=== PATIENT | female | born 1935 | race Two or more races ===

== ENCOUNTER 2021-12-24 11:40 | Inpatient (IN) | payer OTHER ==
[~2021-12-24] VITALS: Ht 165.1 cm; Wt 101.5 kg
[2021-12-24 16:15] LABS: Basophils # (auto) 0.1 10 ^3/uL (0-0.2); Basophils % (auto) 1.4 % (0.0-2.0); Eosinophils # (auto) 0.1 10 ^3/uL (0-0.8); Eosinophils % (auto) 1.8 % (0.0-7.0); Hematocrit 31.5 % (36.0-46.0); Hemoglobin 10.2 g/dL (12.2-16.2); Lymphocytes # (auto) 1.1 10 ^3/uL (0.4-5.4); Lymphocytes % (auto) 26.9 % (10.0-50.0); Mean Corpuscular Hemoglobin 31.5 pg (28.0-32.0); Mean Corpuscular Hgb Conc. 32.4 g/dL (32.0-36.0); Mean Corpuscular Volume 97.4 fL (80.0-100.0); Monocytes # (auto) 0.5 10 ^3/uL (0-1.3); Monocytes % (auto) 13.5 % (0.0-12.0); Neutrophils # (auto) 2.2 10 ^3/uL (1.6-8.6); Neutrophils % (auto) 56.4 % (37.0-80.0); Red Blood Cells 3.24 10^6/uL (4.0-5.20); Red Cell Distribution Width 16.4 % (11.8-14.3)
[2021-12-24] MEDS ORDERED: FUROSEMIDE 40 MG/4 ML VIAL IV ONE (16:15)
[2021-12-24 16:33] LABS: Albumin 2.8 g/dL (3.4-5.0); Potassium 3.7 mmol/L (3.5-5.1)
[2021-12-24 16:36] LABS: BUN/Creatinine Ratio 17.3; Bilirubin, Total 0.7 mg/dL (0.2-1.0); Total Protein 6.5 g/dL (6.4-8.2)
[2021-12-24 17:29] LABS: Urine Bacteria NONE SEEN /hpf (None Seen); Urine Blood TRACE /uL (Negative); Urine Hyaline Cast FEW /lpf (0 - 2); Urine Specific Gravity 1.008 (1.001-1.035); Urine WBC 1 /hpf (0 - 5)
[2021-12-25] MEDS ORDERED: FUROSEMIDE 40 MG/4 ML VIAL IV ONE
[2021-12-25] MEDS ORDERED: hydrALAZINE HCL 20 MG/ML VL IV ONE
[2021-12-25] MEDS ORDERED: BUME2TAB5 PO (00:35)
[2021-12-25] MEDS ORDERED: ONDANSETRON HCL 4 MG/2 ML VIAL IV PRN (01:15)
[2021-12-25] MEDS ORDERED: FUROSEMIDE INJECTION 100 MG in SODIUM CHL 0.9% 100 ML IV ONE (01:15)
[2021-12-25] MEDS ORDERED: MORPHINE SULFATE INJ 2 MG/ml SYRG IV PRN ×2 (01:15)
[2021-12-25] MEDS ORDERED: NITROGLYCERIN 0.4 MG SL TAB SL PRN (01:15)
[2021-12-25] MEDS ORDERED: DEXTROSE (50%) 50ML SYRG IV PRN (01:15)
[2021-12-25] MEDS ORDERED: hydrALAZINE HCL 20 MG/ML VL IV PRN (01:15)
[2021-12-25 06:32] LABS: Basophils # (auto) 0.1 10 ^3/uL (0-0.2); Basophils % (auto) 1.4 % (0.0-2.0); Eosinophils # (auto) 0.1 10 ^3/uL (0-0.8); Eosinophils % (auto) 1.5 % (0.0-7.0); Hematocrit 33.2 % (36.0-46.0); Hemoglobin 10.9 g/dL (12.2-16.2); Lymphocytes # (auto) 1.1 10 ^3/uL (0.4-5.4); Mean Corpuscular Hemoglobin 31.7 pg (28.0-32.0); Mean Corpuscular Hgb Conc. 32.7 g/dL (32.0-36.0); Mean Corpuscular Volume 96.7 fL (80.0-100.0); Monocytes # (auto) 0.6 10 ^3/uL (0-1.3); Monocytes % (auto) 13.2 % (0.0-12.0); Neutrophils % (auto) 60.9 % (37.0-80.0); Nucleated Red Blood Cells % 0.1 %; Red Blood Cells 3.43 10^6/uL (4.0-5.20); Red Cell Distribution Width 16.1 % (11.8-14.3); White Blood Cell 4.9 10^3/uL (4.4-10.8)
[2021-12-25] MEDS: ACCU-CHEK COMFORT CURVE STRIP VI SCH ×4 (06:57→22:30)
[2021-12-25] MEDS: dilTIAZem 120MG ER CAP PO SCH (07:07)
[2021-12-25] MEDS: InsuLIN REG 1unit/0.01ml Soln (100units/ml) SC SCH ×4 (07:07→22:40)
[2021-12-25 09:42] LABS: BUN/Creatinine Ratio 18.7; Calcium 8.8 mg/dL (8.5-10.1); Magnesium 2.2 mg/dL (1.6-2.6); Potassium 3.3 mmol/L (3.5-5.1)
[2021-12-25] MEDS: CARVEDILOL 3.125 MG TAB PO SCH ×2 (09:46→22:17)
[2021-12-25] MEDS ORDERED: ENOXAPARIN SOD 40 MG/0.4 ML SYRINGE SC SCH (10:00)
[2021-12-25 13:52] LABS: INR 1.27 (0.9-1.15); Partial Thromboplastin Time 31.2 sec (24.6-33.4)
[2021-12-25 15:12] LABS: Protein, Urine 9.3 mg/dL (0.0-11.9)
[2021-12-25] MEDS ORDERED: METO-6 PO (15:56)
[2021-12-25] MEDS ORDERED: FURO1TAB33 PO (15:56)
[2021-12-25] MEDS ORDERED: IPRA0.00 IN (15:56)
[2021-12-25] MEDS ORDERED: HEPARIN SODIUM (PORCINE) 5000 UNITS/ML 1ML VIAL ONE (22:28)
[2021-12-25] MEDS: HEPARIN SODIUM (PORCINE) 5000 UNITS/ML 1ML VIAL SC SCH (23:01)
[2021-12-26] VITALS (9 sets, daily range): BP systolic 132–155; BP diastolic 48–69
[2021-12-26] MEDS: ACCU-CHEK COMFORT CURVE STRIP VI SCH ×4 (06:26→22:00)
[2021-12-26] MEDS: InsuLIN REG 1unit/0.01ml Soln (100units/ml) SC SCH ×4 (06:26→22:31)
[2021-12-26] MEDS: dilTIAZem 120MG ER CAP PO SCH (06:27)
[2021-12-26] MEDS: CARVEDILOL 3.125 MG TAB PO SCH ×2 (10:00→22:30)
[2021-12-26] MEDS: HEPARIN SODIUM (PORCINE) 5000 UNITS/ML 1ML VIAL SC SCH ×2 (10:03→22:30)
[2021-12-26] MEDS: ACETAMINOPHEN 325 MG TAB PO PRN (11:05)
[2021-12-26] MEDS ORDERED: POTASSIUM EFFERVESENT TAB 25 MEQ PO ONE (12:30)
[2021-12-26 14:13] LABS: Basophils # (auto) 0 10 ^3/uL (0-0.2); Basophils % (auto) 0.8 % (0.0-2.0); Eosinophils # (auto) 0.1 10 ^3/uL (0-0.8); Eosinophils % (auto) 1.4 % (0.0-7.0); Hematocrit 32.1 % (36.0-46.0); Hemoglobin 10.3 g/dL (12.2-16.2); Lymphocytes # (auto) 0.9 10 ^3/uL (0.4-5.4); Lymphocytes % (auto) 15.6 % (10.0-50.0); Mean Corpuscular Hemoglobin 31.6 pg (28.0-32.0); Mean Corpuscular Volume 98.7 fL (80.0-100.0); Monocytes # (auto) 0.8 10 ^3/uL (0-1.3); Monocytes % (auto) 14.7 % (0.0-12.0); Neutrophils # (auto) 3.8 10 ^3/uL (1.6-8.6); Neutrophils % (auto) 67.5 % (37.0-80.0); Nucleated Red Blood Cells % 0.1 %; Red Blood Cells 3.25 10^6/uL (4.0-5.20); Red Cell Distribution Width 16.6 % (11.8-14.3); White Blood Cell 5.6 10^3/uL (4.4-10.8)
[2021-12-26 14:48] LABS: Albumin 2.5 g/dL (3.4-5.0); Calcium 8.7 mg/dL (8.5-10.1); Potassium 3.5 mmol/L (3.5-5.1)
[2021-12-26 14:51] LABS: BUN/Creatinine Ratio 20.3; Bilirubin, Total 0.6 mg/dL (0.2-1.0); Total Protein 6.2 g/dL (6.4-8.2)
[2021-12-26 14:52] LABS: BUN/Creatinine Ratio 20.3; Calcium 8.9 mg/dL (8.5-10.1); Magnesium 2.4 mg/dL (1.6-2.6); Potassium 3.5 mmol/L (3.5-5.1)
[2021-12-26] MEDS: NYSTATIN TOPICAL POWDER 15GM TOP SCH (22:00)
[2021-12-27] MEDS: FUROSEMIDE 40 MG/4 ML VIAL IV SCH ×2 (01:21→10:11)
[2021-12-27] MEDS: ACETAMINOPHEN 325 MG TAB PO PRN ×2 (01:35→08:54)
[2021-12-27 05:00] VITALS: BP 129/47
[2021-12-27 05:31] LABS: Basophils # (auto) 0.1 10 ^3/uL (0-0.2); Basophils % (auto) 1.1 % (0.0-2.0); Eosinophils # (auto) 0.1 10 ^3/uL (0-0.8); Eosinophils % (auto) 2.1 % (0.0-7.0); Hematocrit 30.6 % (36.0-46.0); Hemoglobin 9.9 g/dL (12.2-16.2); Mean Corpuscular Hemoglobin 32.3 pg (28.0-32.0); Mean Corpuscular Hgb Conc. 32.4 g/dL (32.0-36.0); Mean Corpuscular Volume 99.8 fL (80.0-100.0); Monocytes # (auto) 0.9 10 ^3/uL (0-1.3); Monocytes % (auto) 17.4 % (0.0-12.0); Neutrophils # (auto) 2.9 10 ^3/uL (1.6-8.6); Neutrophils % (auto) 58.4 % (37.0-80.0); Nucleated Red Blood Cells % 0.1 %; Red Blood Cells 3.07 10^6/uL (4.0-5.20); Red Cell Distribution Width 16.9 % (11.8-14.3)
[2021-12-27 05:55] LABS: Albumin 2.6 g/dL (3.4-5.0); Calcium 8.8 mg/dL (8.5-10.1); Potassium 3.9 mmol/L (3.5-5.1)
[2021-12-27 05:58] LABS: BUN/Creatinine Ratio 23.2; Bilirubin, Total 0.7 mg/dL (0.2-1.0); Total Protein 6.1 g/dL (6.4-8.2)
[2021-12-27] MEDS: InsuLIN REG 1unit/0.01ml Soln (100units/ml) SC SCH ×2 (06:43→11:38)
[2021-12-27] MEDS: ACCU-CHEK COMFORT CURVE STRIP VI SCH ×2 (06:46→11:34)
[2021-12-27] MEDS: dilTIAZem 120MG ER CAP PO SCH (06:46)
[2021-12-27 08:05] VITALS: BP 135/50
[2021-12-27] MEDS ORDERED: HYDROcodone-ACET 5/325MG TAB PO PRN (08:45)
[2021-12-27 09:00] VITALS: BP 135/50
[2021-12-27] MEDS: NYSTATIN TOPICAL POWDER 15GM TOP SCH (10:12)
[2021-12-27] MEDS: CARVEDILOL 3.125 MG TAB PO SCH (10:12)
[2021-12-27] MEDS: HEPARIN SODIUM (PORCINE) 5000 UNITS/ML 1ML VIAL SC SCH (10:17)
[2021-12-27 12:46] VITALS: BP 132/52
[2021-12-27 13:21] LABS: Hepatitis C Antibody Negative (Negative)
[2021-12-27 15:02] VITALS: BP 120/51
== END 2021-12-27 17:09 | disposition home health service (06) | DRG 280 ==
LOC: EDBD 11:40 → ER 11:52 → EDSEX 11:52 → TELE 12-25 01:04 → TELE-CENTR 12-25 23:47 → OBSVTOIN 12-27 10:53
PROVIDERS: ADMIT Hospitalist; ATTEND Hospitalist
DX: I13.0 Hypertensive heart and chronic kidney disease with heart failure and stage 1 through stage 4 chronic kidney disease, or unspecified chronic kidney disease (principal); I21.4 Non-ST elevation (NSTEMI) myocardial infarction; I50.43 Acute on chronic combined systolic (congestive) and diastolic (congestive) heart failure; N17.0 Acute kidney failure with tubular necrosis; D63.1 Anemia in chronic kidney disease; E11.22 Type 2 diabetes mellitus with diabetic chronic kidney disease; E66.9 Obesity, unspecified; E78.5 Hyperlipidemia, unspecified; I08.1 Rheumatic disorders of both mitral and tricuspid valves; Z20.822 Contact with and (suspected) exposure to COVID-19; I27.20 Pulmonary hypertension, unspecified; I87.8 Other specified disorders of veins; N18.30 Chronic kidney disease, stage 3 unspecified; Z90.710 Acquired absence of both cervix and uterus; Z68.37 Body mass index [BMI] 37.0-37.9, adult
CPT/HCPCS: 36415; 71045; 76775; 76856; 80048; 80053; 81001; 82306; 82570; 82962; 83735; 83880; 83970; 84156; 84300; 84484; 85025; 85610; 85730; 86803; 87340; 93005; 96365; 96375; 96376; 97110; 97163; 97530; G0378; J1815

== ENCOUNTER 2024-12-03 12:00 | Inpatient (IN) | payer OTHER, MEDICAID ==
[~2024-12-03] VITALS: Ht 165.1 cm; Wt 65.5 kg
[~2024-12-03 12:00] MED LIST: BUME2TAB5 PO; FURO1TAB33 PO; IPRA0.00 IN; METO-6 PO
--- NOTE | 2024-12-03 12:18 | ED.PDOC ---
HPI Comments HPI: 89 year old presents to the emergency department via EMS with a chief complaint of generalized weakness onset today (12/03/24). PMHx CHF, a-fib, HTN, DM, CKF. Per EMS, patient was experiencing generalized weakness, is able to ambulate with walker. Upon EMS arrival, patient had a fever of 100.2 F, positive orthostatic hypotension, 89 systolic, O2 sat 98% RA. Patient states last meal was yesterday morning. She is currently on Eliquis. Patient denies any pain at this time. No other symptoms or modifying factors present at this time. Initial Vitals BP: 109/61 HR: 92 RR: 18 O2 Sat: 98% Temp: 98.2 F Past Medical history: HTN, a-fib, CHF, CKF, DM Past Surgical history: denies Medications: Eliquis Social History: Denies smoking, ETOH, and drug use. Allergies: NKDA HPI: Poor Historian. REVIEW OF SYSTEMS: CONSTITUTIONAL: Denies acute: fever, diaphoresis, chills, HEAD: Denies acute: headache, photophobia Eyes: Denies acute: Double vision, vision loss, eye pain, eye discharge. EARS: Denies acute: tinnitus, hearing loss, ear discharge, ear pain, THROAT: Denies acute: sore throat, swelling, difficulty swallowing , pain with swallowing, change in voice. NECK: Denies acute: neck pain, neck swelling, stiff neck. HEART: Denies acute : chest pain, palpitations, LUNGS: Denies acute: SOB, wheezing, cough, hemoptysis ABDOMEN: Denies acute: abdominal pain, Nausea, Vomiting, diarrhea, melena , hematemesis, hematochezia SKIN: Denies acute: rash, redness, lesions, itchiness. EXTREMITIES: Denies acute: calf pain, numbness, tingling, weakness, denies pain in extremity. Denies acute: Low back pain. Neuro: Denies acute: focal neurological deficit, motor or sensory focal neurological deficit, tremors, seizure like activity, confusion, change in mental status, loss of bowel or bladder function, cauda equina like symptoms. : Denies acute: dysuria, hematuria, flank pain, increase in urinary frequency. PSYCH: Denies acute: hallucination, suicidal ideation, homicidal ideation. FEMALE: Denies acute: abnormal vaginal bleeding, foul odor, unusual discharge. PHYSICAL EXAM: General: ----mild----acute distress, awake and alert. Head: normocephalic, atraumatic. Neck: supple, trachea is midline, no swelling. Throat: Normal phonation. Eyes:, no erythema, no purulent discharge, no proptosis, no icterus. Heart: regular rate, regular rhythm, no significant murmur appreciated. Lungs: no apparent respiratory distress, Able to speak in full sentences. No wheezing, no rhonchi, no crackles. No stridors Clear to auscultation bilaterally. Abdomen: non tender to palpation, non distended, soft, no guarding, no rebound, + bowel sounds. Neuro: Awake, Alert, oriented to name, self, situation, follows commands GCS=15. Speech is normal. Skin: no petechia, no purpura, no cyanosis, non-pale, not jaundice. Lower extremities: --2/4 b/l - Pitting edema no deformity, no calf TTP. Right lateral [id number] swelling that is tender to palpation. Patient has said that she fell three days ago without any head injury. It appears like possibly a hematoma. Bilateral venous stasis Makes eye contact. moves all four extremities. Face: no apparent facial droop. ED COURSE: DISCLAIMER: This medical document was created using an electronic medical record system with voice recognition software and computerized dictation system. Although this document has been carefully reviewed, there might still be some phonetic and typographical errors. Occasional wrong-word or "sound-alike" substitutions may have occurred due to the inherent limitations of voice recognition software. These areas are purely typographical due to imperfections of the software [employer] and do not reflect any compromise in the patient's medical care. Please read the chart carefully and recognize, using context, where these substitutions have occurred. Chief Complaint: General Weakness Time Seen by MD: 12:00 Primary Care Provider: PRISCILA Reviewed Notes: Medications, Allergies Allergies: Coded Allergies: NO KNOWN ALLERGIES (Unverified , 12/24/21) Home Meds Active Scripts Metoprolol Succinate (Toprol Xl) 50 Mg Tab, 1 TAB PO DAILY, #30 TAB 5 Refills Prov:GULSHAN ZIMMERMAN MD 12/25/21 Ipratropium-Albuterol (Ipratropium [place]/Albut) 1 Celine Celine, 1 CELINE IN Q4HP PRN, #100 ML Prov:GULSHAN ZIMMERMAN MD 12/25/21 Furosemide (Lasix) 20 Mg Tb, 2 TAB PO BID, #90 TAB 1 Refill Prov:GULSHAN ZIMMERMAN MD 12/25/21 Bumetanide (Bumetanide) 2 Mg Tab, 0.5 TAB PO DAILY, #30 TAB 0 Refills Prov:CASSIUS RODRIGUEZ MD 12/25/21 Information Source: Patient, Emergency Med Personnel Mode of Arrival: EMS Severity: Moderate Timing: Hours Duration: Since onset Prehospital treatment: None Onset: At Rest Cardiac Risk Factors: HTN, Diabetes PE Risk Factors: None History of: None Modifying Factors: Nothing Past Medical History PAST MEDICAL HISTORY: AFIB, CHF, CKF, DM, HTN Surgical History: Denies all surgeries [place] SHERIFF History: No Pertinent [place]IFF History Family History Family History: Reviewed,noncontributory to illness Social History Smoker: Non-Smoker Alcohol: Denies ETOH Use Drugs: Denies Drug Use Lives In: Home Was a procedure done? Was a procedure done?: No X-Ray, Labs, Meds, VS Vital Signs Date Time Temp Pulse Resp B/P (MAP) Pulse Ox O2 Delivery O2 Flow Rate FiO2 12/03/24 14:45 80 18 97 Room Air* 0 21 12/03/24 14:45 98.3 80 18 98/66 (77) 97 98.3 12/03/24 12:06 98.2 92 18 109/61 (77) 98 98.2 12/03/24 12:06 92 18 98 Room Air 0 12/03/24 12:06 98.2 92 18 109/61 (77) 98 98.2 12/03/24 12:02 102 Lab Test 12/03/24 19:23 12/03/24 14:49 12/03/24 12:07 Range/Units Troponin I High Sensitivity 62 *H 55 *H </=34 ng/L White Blood Count 7.1 4.4-10.8 10^3/uL Red Blood Count 4.10 4.0-5.20 10^6/uL Hemoglobin 13.6 12.2-16.2 g/dL Hematocrit 40.9 36.0-46.0 % Mean Corpuscular Volume 99.9 80.0-100.0 fL Mean Corpuscular Hemoglobin 33.2 H 28.0-32.0 pg Mean Corpuscular Hemoglobin Concent 33.2 32.0-36.0 g/dL Red Cell Distribution Width 14.4 H 11.8-14.3 % Platelet Count 206 140-450 10^3/uL Mean Platelet Volume 6.8 L 6.9-10.8 fL Neutrophils (%) (Auto) 72.3 37.0-80.0 % Lymphocytes (%) (Auto) 13.4 10.0-50.0 % Monocytes (%) (Auto) 13.4 H 0.0-12.0 % Eosinophils (%) (Auto) 0.6 0.0-7.0 % Basophils (%) (Auto) 0.3 0.0-2.0 % Neutrophils # (Auto) 5.1 1.6-8.6 10 ^3/uL Lymphocytes # (Auto) 1.0 0.4-5.4 10 ^3/uL Monocytes # (Auto) 1.0 0-1.3 10 ^3/uL Eosinophils # (Auto) 0 0-0.8 10 ^3/uL Basophils # (Auto) 0 0-0.2 10 ^3/uL Nucleated Red Blood Cells 0.1 % Sodium Level 128 L 136-145 mmol/L Potassium Level 4.5 3.5-5.1 mmol/L Chloride Level 90 L 98-107 mmol/L Carbon Dioxide Level 26 20-31 mmol/L Anion Gap 12 5-15 Blood Urea Nitrogen 103 *H 9-23 mg/dL Creatinine 2.83 H 0.550-1.02 mg/dL Glomerular Filtration Rate Calc 16 >90 mL/min BUN/Creatinine Ratio 36.4 H 10.0-20.0 Serum Glucose 150 H 74-106 mg/dL Lactic Acid Level 1.1 0.4-2.0 mmol/L Calcium Level 9.9 8.7-10.4 mg/dL Total Bilirubin 1.0 0.2-1.0 mg/dL Aspartate Amino Transferase (AST) 21 13-40 U/L Alanine Aminotransferase (ALT) < 9 7-40 U/L Alkaline Phosphatase 83 46-116 U/L B-Type Natriuretic Peptide 404.68 0-100 pg/mL Total Protein 7.6 5.7-8.2 g/dL Albumin 4.2 3.2-4.8 g/dL POC Glucose 130 H 70-106 mg/dl [address] [address] Ph: [phone] DIAGNOSTIC IMAGING Diagnostic Imaging Report : [id number] Signed PATIENT: CHIVO ESPINOSA ACCT: [id number] UNIT: [id number] : 1935 LOC: ER ROOM / BED: / AGE / SEX: 89 / F ADM STATUS: REG ER SERVICE 1219 ORDERING PHYSICIAN: HEATHER DOUGLAS DO PROCEDURE(s): CXRP - CHEST PORTABLE REASON: weak ORDER NUMBER(s): [id number], ACCESSION NUMBER(s): [id number] EXAM: XY CHEST PORTABLE Indication: weak Technique: Single frontal view of the chest was obtained Comparison: CHEST PORTABLE on DOS: 12/24/21, CXRP on DOS: 12/24/21 FINDINGS: Lines and Tubes: None Lungs: No focal consolidation. Linear atelectasis of the left lung base. Pleura: No effusion. No pneumothorax. Cardiomediastinal contours: Cardiomegaly Atherosclerotic vascular calcifications of the thoracic aorta are noted. Bones: No acute osseous abnormality. IMPRESSION: Cardiomegaly. No acute cardiopulmonary disease. ATED BY: MICHELLE DUVALL MD DICTATED DATE/TIME: 12/03/24 124 SIGNED BY: MICHELLE DUVALL MD SIGNED DATE/TIME: 12/03/24 124 CC: [address] [address] Ph: [phone] DIAGNOSTIC IMAGING Diagnostic Imaging Report : [id number] Signed PATIENT: CHIVO ESPINOSA ACCT: [id number] UNIT: [id number] : 1935 LOC: ER ROOM / BED: / AGE / SEX: 89 / F ADM STATUS: REG ER SERVICE 1532 ORDERING PHYSICIAN: HEATHER DOUGLAS DO PROCEDURE(s): RKNCT - CT R KNEE WO CONTRAST REASON: FALL ORDER NUMBER(s): [id number], ACCESSION NUMBER(s): [id number] INDICATION: FALL, trauma, pain COMPARISON: None TECHNIQUE: CT of the right knee was performed without contrast. Volume transverse images were obtained and reconstructed in multiple planes using bone and soft tissue algorithms. Radiation Dose Information: CT Dose: CTDI volume is 7.75 mGy. Dose-length product is 244.94 mGy*cm FINDINGS: Diffuse osteopenia. The alignment is normal. Severe tricompartmental degenerative changes. This is most advanced medially and at the patellofemoral joint. There is no fracture, dislocation or aggressive osseous lesion. There is no joint effusion. Soft-tissue hematoma is present in the subcutaneous soft-tissue overlying the proximal, anterolateral calf. This measures approximately 5.8 x 8.2 cm. IMPRESSION: Soft-tissue hematoma is present in the subcutaneous soft-tissue overlying the proximal, anterolateral calf. This measures approximately 5.8 x 8.2 cm. ATED BY: COSTA PAREDES MD DICTATED DATE/TIME: 12/03/241635 SIGNED BY: COSTA PAREDES MD SIGNED DATE/TIME: 12/03/241635 CC: Time of 1ST Reevaluation: 12:30 Reevaluation 1ST: Unchanged Time of 2ND Reevaluation: 14:43 (As of now all labs are still pending) Time of 3RD Reevaluation: 22:32 (The case was discussed with the admitting team (HPI, physical exam, labs and diagnostic tests that were available at the time of disposition, ED course, treatment plan) on the phone. They agreed to admit the patient to their service and assume care of this patient from this point forward. --- Jamal) Reevaluation 3RD: Improved Patient Education/Counseling: Diagnosis, Treatment Family Education/Counseling: No Family Present Departure 1 Departure Time of Disposition: 16:07 Impression: Primary Impression: Orthostatic hypotension Additional Impressions: Hyponatremia Acute renal failure Elevated troponin Leg hematoma Disposition: ADMITTED INPATIENT Admit to: Tele Condition: Guarded Discharged With: Self Critical Care Note Critical Care Time?: No I personally scribed for HEATHER DOUGLAS DO ([email or web address]) on 12/03/24 at 12:18. Electronically submitted by Yris Mcconnell ([email or web address]). I personally scribed for HEATHER DOUGLAS DO ([email or web address]) on 12/03/24 at 12:58. Electronically submitted by Yris Mcconnell ([email or web address]). I personally scribed for HEATHER DOUGLAS DO ([email or web address]) on 12/03/24 at 16:55. Electronically submitted by Yris Mcconnell ([email or web address]). HEATHER DOUGLAS DO Dec 03, 2024 12:18
--- NOTE | 2024-12-03 12:44 | DVH ---
EXAM: XY CHEST PORTABLE Indication: weak Technique: Single frontal view of the chest was obtained Comparison: CHEST PORTABLE on DOS: 12/24/21, CXRP on DOS: 12/24/21 FINDINGS: Lines and Tubes: None Lungs: No focal consolidation. Linear atelectasis of the left lung base. Pleura: No effusion. No pneumothorax. Cardiomediastinal contours: Cardiomegaly Atherosclerotic vascular calcifications of the thoracic aort a are noted. Bones: No acute osseous abnormality. IMPRESSION: Cardiomegaly. No acute cardiopulmonary disease.
[2024-12-03 14:45] VITALS: PULSE 80; RESP 18; O2SAT 97
[2024-12-03 15:02] LABS: Hematocrit 40.9 % (36.0-46.0); Hemoglobin 13.6 g/dL (12.2-16.2); Mean Corpuscular Hemoglobin 33.2 pg (28.0-32.0); Mean Corpuscular Volume 99.9 fL (80.0-100.0); Nucleated Red Blood Cells % 0.1 %
[2024-12-03 15:19] LABS: Albumin 4.2 g/dL (3.2-4.8); Alkaline Phosphatase 83 U/L (46-116); Anion Gap 12 (5-15); BUN/Creatinine Ratio 36.4 (10.0-20.0); Bilirubin, Total 1.0 mg/dL (0.2-1.0); Calcium 9.9 mg/dL (8.7-10.4); Carbon Dioxide 26 mmol/L (20-31); Potassium 4.5 mmol/L (3.5-5.1); Total Protein 7.6 g/dL (5.7-8.2)
[2024-12-03 15:27] LABS: Alanine Aminotransferase < 9 U/L (7-40); Chloride 90 mmol/L (98-107); Glucose 150 mg/dL (74-106); Sodium 128 mmol/L (136-145)
[2024-12-03 15:31] LABS: Blood Urea Nitrogen 103 mg/dL (9-23)
--- NOTE | 2024-12-03 16:38 | DVH ---
INDICATION: FALL, trauma, pain COMPARISON: None TECHNIQUE: CT of the right knee was performed without contrast. Volume transverse images were obtaine d and reconstructed in multiple planes using bone and soft tissue algorithms. Radiation Dose Information: CT Dose: CTDI volume is 7.75 mGy. Dose-length product is 244.94 mGy*cm FINDINGS: Diffuse osteopenia. The alignment is normal. Severe tricompartmental degenerative changes. This is most advanced medially and at the patellofemora l joint. There is no fracture, dislocation or aggressive osseous lesion. There is no joint effusion. Soft-tissue hematoma is present in the subcutaneous soft-tissue overlying the proximal, anterolateral calf. This measures approximately 5.8 x 8.2 cm. IMPRESSION: Soft-tissue hematoma is present in the subcutaneous soft-tissue overlying the proximal, anterolateral calf. This measures approximately 5.8 x 8.2 cm.
--- NOTE | 2024-12-03 21:14 | ECG ---
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
[2024-12-03] MEDS ORDERED: NITROGLYCERIN 0.4 MG SL TAB SL PRN (23:00)
[2024-12-03] MEDS ORDERED: DEXTROSE (50%) 50ML SYRG IV PRN (23:00)
[2024-12-03] MEDS ORDERED: MORPHINE SULFATE INJ 2 MG/ml SYRG IV PRN (23:00)
--- NOTE | 2024-12-04 00:16 | DVHINCON2 ---
Date of service: Dec 03, 2024 Referring Physician Jamal Reason for Consultation Elevated troponin History of Present Illness This is a 89 year old female with a PMH of HTN, a-fib, CHF, CKF, DM who was brought in by EMS with complaints of generalized weakness onset today (12/03/24). Patient normally is able to ambulate with walker. Upon EMS arrival, patient had a fever of 100.2 F, positive orthostatic hypotension, 89 systolic. Patient states last meal was yesterday morning. She is currently on Eliquis. EKG shows tachycardia at 102. Chest x-ray shows cardiomegaly. CT right knee shows soft-tissue hematoma is present in the subcutaneous soft-tissue overlying the proximal, anterolateral calf. This measures approximately 5.8 x 8.2 cm. 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 Patient was admitted to the hospital. I am asked to consult on this patient. Allergies: Coded Allergies: NO KNOWN ALLERGIES (Unverified , 12/24/21) Home Meds Active Scripts Metoprolol Succinate (Toprol Xl) 50 Mg Tab, 1 TAB PO DAILY, #30 TAB 5 Refills Prov:GULSHAN ZIMMERMAN MD 12/25/21 Ipratropium-Albuterol (Ipratropium [place]/Albut) 1 Celine Celine, 1 CELINE IN Q4HP PRN, #100 ML Prov:GULSHAN ZIMMERMAN MD 12/25/21 Furosemide (Lasix) 20 Mg Tb, 2 TAB PO BID, #90 TAB 1 Refill Prov:GULSHAN ZIMMERMAN MD 12/25/21 Bumetanide (Bumetanide) 2 Mg Tab, 0.5 TAB PO DAILY, #30 TAB 0 Refills Prov:CASSIUS RODRIGUEZ MD 12/25/21 Current Medications Current Medications Medications (Trade) Dose Ordered Sig/Betty Route PRN Reason Start Time Stop Time Status Last Admin Nitroglycerin (Ntrostat Sublingual) 0.4 mg Q5MINP PRN SL FOR CHEST PAIN 12/03/24 23:00 Morphine Sulfate 2 mg Q30M PRN IV FOR CHEST PAIN 12/03/24 23:00 Diagnostic Test (Pha) (Accu-Chek Comfort Curve T) 1 strip ACHS 12/04/24 07:00 Insulin Human Regular (InsuLIN R) ACHS SC 12/04/24 07:00 Dextrose 50 ml UD PRN IV Blood Sugar LESS THAN 60 12/03/24 23:00 Review of Systems CONSTITUTIONAL: Denies acute: fever, diaphoresis, chills, HEAD: Denies acute: headache, photophobia Eyes: Denies acute: Double vision, vision loss, eye pain, eye discharge. EARS: Denies acute: tinnitus, hearing loss, ear discharge, ear pain, THROAT: Denies acute: sore throat, swelling, difficulty swallowing , pain with swallowing, change in voice. NECK: Denies acute: neck pain, neck swelling, stiff neck. HEART: Denies acute : chest pain, palpitations, LUNGS: Denies acute: SOB, wheezing, cough, hemoptysis ABDOMEN: Denies acute: abdominal pain, Nausea, Vomiting, diarrhea, melena , hematemesis, hematochezia SKIN: Denies acute: rash, redness, lesions, itchiness. EXTREMITIES: Denies acute: calf pain, numbness, tingling, weakness, denies pain in extremity. Denies acute: Low back pain. Neuro: Denies acute: focal neurological deficit, motor or sensory focal neurological deficit, tremors, seizure like activity, confusion, change in mental status, loss of bowel or bladder function, cauda equina like symptoms. : Denies acute: dysuria, hematuria, flank pain, increase in urinary frequency. PSYCH: Denies acute: hallucination, suicidal ideation, homicidal ideation. FEMALE: Denies acute: abnormal vaginal bleeding, foul odor, unusual discharge. Vital Signs Vital Signs Date Time Temp Pulse Resp B/P (MAP) Pulse Ox O2 Delivery O2 Flow Rate FiO2 12/03/24 14:45 80 18 97 Room Air* 0 21 12/03/24 14:45 98.3 98/66 (77) 98.3 Physical Exam GENERAL: Alert and oriented x 3. No acute distress. EYES: PERRL, EOMI. Anicteric. HENT: Moist mucous membranes. LUNGS: Clear to auscultation bilaterally. CARDIOVASCULAR: Regular rate and rhythm. ABDOMEN: Soft, non-tender and non-distended. EXTREMITIES: BLE edema. Bilateral venous stasis. Small hematoma. NEUROLOGIC: No focal neurological deficits. SKIN: Warm, dry. Labs/Diagnostic Data Labs Test 12/03/24 19:23 12/03/24 14:49 12/03/24 12:07 Range/Units Troponin I High Sensitivity 62 *H </=34 ng/L White Blood Count 7.1 4.4-10.8 10^3/uL Red Blood Count 4.10 4.0-5.20 10^6/uL Hemoglobin 13.6 12.2-16.2 g/dL Hematocrit 40.9 36.0-46.0 % Mean Corpuscular Volume 99.9 80.0-100.0 fL Mean Corpuscular Hemoglobin 33.2 H 28.0-32.0 pg Mean Corpuscular Hemoglobin Concent 33.2 32.0-36.0 g/dL Red Cell Distribution Width 14.4 H 11.8-14.3 % Platelet Count 206 140-450 10^3/uL Mean Platelet Volume 6.8 L 6.9-10.8 fL Neutrophils (%) (Auto) 72.3 37.0-80.0 % Lymphocytes (%) (Auto) 13.4 10.0-50.0 % Monocytes (%) (Auto) 13.4 H 0.0-12.0 % Eosinophils (%) (Auto) 0.6 0.0-7.0 % Basophils (%) (Auto) 0.3 0.0-2.0 % Neutrophils # (Auto) 5.1 1.6-8.6 10 ^3/uL Lymphocytes # (Auto) 1.0 0.4-5.4 10 ^3/uL Monocytes # (Auto) 1.0 0-1.3 10 ^3/uL Eosinophils # (Auto) 0 0-0.8 10 ^3/uL Basophils # (Auto) 0 0-0.2 10 ^3/uL Nucleated Red Blood Cells 0.1 % Sodium Level 128 L 136-145 mmol/L Potassium Level 4.5 3.5-5.1 mmol/L Chloride Level 90 L 98-107 mmol/L Carbon Dioxide Level 26 20-31 mmol/L Anion Gap 12 5-15 Blood Urea Nitrogen 103 *H 9-23 mg/dL Creatinine 2.83 H 0.550-1.02 mg/dL Glomerular Filtration Rate Calc 16 >90 mL/min BUN/Creatinine Ratio 36.4 H 10.0-20.0 Serum Glucose 150 H 74-106 mg/dL Lactic Acid Level 1.1 0.4-2.0 mmol/L Calcium Level 9.9 8.7-10.4 mg/dL Total Bilirubin 1.0 0.2-1.0 mg/dL Aspartate Amino Transferase (AST) 21 13-40 U/L Alanine Aminotransferase (ALT) < 9 7-40 U/L Alkaline Phosphatase 83 46-116 U/L B-Type Natriuretic Peptide 404.68 0-100 pg/mL Total Protein 7.6 5.7-8.2 g/dL Albumin 4.2 3.2-4.8 g/dL POC Glucose 130 H 70-106 mg/dl Assessment Orthostatic hypotension. TERRI. Weakness. Hyponatremia. Elevated troponin. Leg hematoma. Plan/Recommendation I agree with your ongoing assessment and care of plan. Telemetry reviewed. Echocardiogram. Trend troponin. Morphine for pain management. Nitro SL. Additional plan as per the hospital course. A total of 45 minutes was spent reviewing the patient record, examining the patient, making a diagnostic and therapeutic plan, discussing this plan with medical personnel, following up on diagnostic studies and following the patient for clinical stability excluding any and all procedures. At least 50% of this time was spent in direct, [id number] contact. Plan discussed with: Patient SAHARA RAHMAN MD Dec 04, 2024 00:16
[2024-12-04 00:34] LABS: INR 1.31 (0.9-1.15); Prothrombin Time 13.5 sec (9.3-11.8)
[2024-12-04] MEDS: SODIUM CHLORIDE 0.9% 1,000 ML IV ONE (04:46)
[2024-12-04] MEDS: cefTRIAXone 1GM/50ML D5W 50 ML IV ONE (04:56)
[2024-12-04 05:08] VITALS: BP 107/63; PULSE 88; RESP 16; TEMP 97.4; O2SAT 98
[2024-12-04 05:35] VITALS: BP 114/73; PULSE 91; RESP 14; TEMP 97.9; O2SAT 99
[2024-12-04 05:42] LABS: COVID19 ANTIGEN SOFIA FIA NEGATIVE (NEGATIVE)
[2024-12-04] MEDS: InsuLIN REG 1unit/0.01ml Soln (100units/ml) SC SCH (07:35)
[2024-12-04] MEDS: ACCU-CHEK COMFORT CURVE STRIP VI SCH (07:36)
[2024-12-04 08:13] VITALS: PULSE 84; RESP 16; O2SAT 96
[2024-12-04 09:05] LABS: Urine Protein, UAD Negative (Negative)
[2024-12-04 09:55] LABS: Hematocrit 39.3 % (36.0-46.0); Hemoglobin 13.4 g/dL (12.2-16.2); Mean Corpuscular Hemoglobin 33.1 pg (28.0-32.0); Mean Corpuscular Volume 97.1 fL (80.0-100.0)
[2024-12-04 10:02] LABS: Albumin 3.9 g/dL (3.2-4.8); Alkaline Phosphatase 75 U/L (46-116); Anion Gap 14 (5-15); BUN/Creatinine Ratio 40.7 (10.0-20.0); Bilirubin, Total 0.8 mg/dL (0.2-1.0); Calcium 9.9 mg/dL (8.7-10.4); Carbon Dioxide 25 mmol/L (20-31); Potassium 4.1 mmol/L (3.5-5.1); Total Protein 7.2 g/dL (5.7-8.2)
[2024-12-04 10:06] LABS: Alanine Aminotransferase < 9 U/L (7-40); Chloride 96 mmol/L (98-107); Glucose 124 mg/dL (74-106); Sodium 135 mmol/L (136-145)
[2024-12-04 10:09] LABS: Blood Urea Nitrogen 99 mg/dL (9-23)
[2024-12-04 10:29] LABS: Total Cells Counted 100.0 (100)
--- NOTE | 2024-12-04 11:32 | DVH ---
EXAM DESCRIPTION: RENAL ULTRASOUND CLINICAL HISTORY: TERRI COMPARISON: KIDNEY on DOS: 12/25/21 TECHNIQUE: Multiplanar ultrasound examination of the kidneys and urinary bladder was performed. FINDINGS: The right kidney measures 11.6 cm. No renal calculus. No hydronephrosis.. No solid renal masses. Mult iple right renal cysts measuring up to 3.1 cm. The left kidney measures 9 cm. No renal calculus. No hydronephrosis.. No solid renal masses. Multiple left renal cyst measuring up to 3.6 cm. Renal cortices are echogenic bilaterally. Decompressed urinary bladder. IMPRESSION: 1. Echogenicity kidneys, suggesting medical renal disease. No hydronephrosis. 2. Multiple bilateral renal cysts measuring up to 3.6 cm.
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
[2024-12-04] MEDS: SODIUM CHLORIDE 0.9% 1,000 ML IV SCH (14:16)
--- NOTE | 2024-12-04 15:00 | DVHSR ---
APPROVED REPORT EXAM: Two-dimensional and M-mode echocardiogram with Doppler and color Doppler. Blood Pressure: 101/44 mmHg INDICATION Elevated Trop RISK FACTORS Height: 5' 5", Weight: 140 DIMENSIONS LVDd4.3 (3.8-5.7cm)LA (2D)4.9 (1.9-4.0cm)Aortic Root3.4 (2.0-3.7cm) LVDs3.4 (2.5-4.0cm)LA (MM) (1.9-4.0cm)Aortic Cusp Exc1.7 (1.5-2.0cm) EF (%) 40.0 (55-70%)Rt. Atrium4.7 (1.9-4.0cm)Asc. Aorta cm IVSd1.6 (0.7-1.1cm)RV (D) (1.8-2.4cm) PWd1.2 (0.7-1.1cm) Mitral Valve MitralMitral Stenosis E wave0.80m/sMV Mean GR.mmHg A wave0.40m/sMV Peak GR.mmHg E/A ratio2.02D MVAcm2 Aortic Valve Aortic ValveAortic Stenosis V10.60m/Héctor Mean GR.3mmHg V21.00m/Héctor Peak GR.5mmHg LVOT Diameter2.0 (1.8-2.4cm)Doppler AVA1.88cm2 Pulmonic Valve V20.80m/s Tricuspid Valve TR Velocity2.40m/s [id number] Conclusion SEVERE LVH SEVERE LV DIASTOLIC DYSFUNCTION MILD LV GLOBAL HYPOKINESIS LV EF IS 40% AND IS REDUCED MODERATE DEGREE SYSTOLIC DYSFUNCTION MODERATELY DILATED LA AND RA CALCIFIED MITRAL LEAFLETS MODERATE MR AND TR NORMAL TV,PV AND AORTIC LEAFLETS NORMAL RVSP AND IS 30 MM OF HG NO EFFUSION
[2024-12-04 15:45] VITALS: BP 114/73; PULSE 91; RESP 19; TEMP 98.3; O2SAT 99
[2024-12-04] MEDS: ACETAMINOPHEN 325 MG TAB PO PRN (17:22)
[2024-12-04 20:00] VITALS: PULSE 90
[2024-12-04 21:00] VITALS: BP 106/52; PULSE 89; RESP 16; TEMP 97.2; O2SAT 96
--- NOTE | 2024-12-04 23:35 | DVHPN2 ---
Progress Note - Dictate Date Seen: Dec 04, 2024 Medical Necessity Reason Pt with a Central, PICC or Fol: No Subjective Patient was seen and evaluated in follow up. Patient is complaining of generalized weakness. 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 Renal US shows echogenicity kidneys, suggesting medical renal disease. No hydronephrosis. Multiple bilateral renal cysts measuring up to 3.6 cm. Telemetry reviewed. vital signs Vital Sign Date Time Temp Pulse Resp B/P (MAP) Pulse Ox O2 Delivery O2 Flow Rate FiO2 12/04/24 10:00 97 12 103/54 (70) 97 12/04/24 08:13 Room Air* 0 21 12/04/24 08:01 97.9 97.9 medications Current Medications Medications Dose Ordered Sig/Betty Route Start Time Stop Time Status Last Admin Dose Admin Nitroglycerin 0.4 mg Q5MINP PRN SL 12/03/24 23:00 Morphine Sulfate 2 mg Q30M PRN IV 12/03/24 23:00 Diagnostic Test (Pha) 1 strip ACHS 12/04/24 07:00 12/04/24 11:44 1 STRIP Insulin Human Regular ACHS SC 12/04/24 07:00 12/04/24 11:44 2 UNITS Dextrose 50 ml UD PRN IV 12/03/24 23:00 Sodium Chloride 1,000 ml @ 60 mls/hr [id number] IV 12/04/24 12:30 UNV objective GENERAL: Alert and oriented x 3. No acute distress. EYES: PERRL, EOMI. Anicteric. HENT: Moist mucous membranes. LUNGS: Clear to auscultation bilaterally. CARDIOVASCULAR: Regular rate and rhythm. ABDOMEN: Soft, non-tender and non-distended. EXTREMITIES: BLE edema. Bilateral venous stasis. Small hematoma. NEUROLOGIC: No focal neurological deficits. SKIN: Warm, dry. laboratory and microbiology Laboratory Tests 12/04/24 09:05 Test 12/04/24 09:05 Range/Units Serum Glucose 124 H 74-106 mg/dL Problem List Orthostatic hypotension. TERRI. Weakness. Hyponatremia. Elevated troponin. Leg hematoma. Assessment/Plan Continued all current supportive medical care. Echocardiogram. Morphine for pain management. Nitro SL. Additional plan as per the hospital course. Plan discussed with: Patient SAHARA RAHMAN MD Dec 04, 2024 12:34
[2024-12-05] VITALS (8 sets, daily range): BP systolic 96–136; BP diastolic 50–77; PULSE 73–111; RESP 16–20; TEMP 97.2–98.4; O2SAT 96–98
[2024-12-05 09:11] LABS: Albumin 3.9 g/dL (3.2-4.8); Alkaline Phosphatase 75 U/L (46-116); Anion Gap 12 (5-15); BUN/Creatinine Ratio 43.0 (10.0-20.0); Calcium 10.0 mg/dL (8.7-10.4); Carbon Dioxide 28 mmol/L (20-31); Chloride 99 mmol/L (98-107); Potassium 4.2 mmol/L (3.5-5.1); Sodium 139 mmol/L (136-145); Total Protein 7.2 g/dL (5.7-8.2)
[2024-12-05 09:12] LABS: Bilirubin, Total 0.7 mg/dL (0.2-1.0)
[2024-12-05 09:29] LABS: Alanine Aminotransferase < 9 U/L (7-40); Glucose 165 mg/dL (74-106)
[2024-12-05 09:30] LABS: Blood Urea Nitrogen 80 mg/dL (9-23)
[2024-12-05 09:46] LABS: Hematocrit 38.3 % (36.0-46.0); Hemoglobin 12.9 g/dL (12.2-16.2); Mean Corpuscular Hemoglobin 33.6 pg (28.0-32.0); Mean Corpuscular Volume 99.2 fL (80.0-100.0); Nucleated Red Blood Cells % 0.1 %
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
--- NOTE | 2024-12-05 19:39 | DVHPN2 ---
Progress Note Date Seen: Dec 05, 2024 Medical Necessity Reason Pt with a Central, PICC or Fol: No Subjective Patient reports: No new complaints Review of Systems: Deferred Objective vital signs Vital Sign Date Time Temp Pulse Resp B/P (MAP) Pulse Ox O2 Delivery O2 Flow Rate FiO2 12/05/24 17:15 97.6 93 20 96/50 (65) 98 97.6 12/05/24 08:00 Room Air* 0 21 Total Intake and Output 12/04/24 12/04/24 12/05/24 15:00 23:00 07:00 Intake Total 180 ml 1095 ml Output Total 450 ml Balance 180 ml 645 ml medications Current Medications Medications Dose Ordered Sig/Betty Route Start Time Stop Time Status Last Admin Dose Admin Nitroglycerin 0.4 mg Q5MINP PRN SL 12/03/24 23:00 Morphine Sulfate 2 mg Q30M PRN IV 12/03/24 23:00 Diagnostic Test (Pha) 1 strip ACHS 12/04/24 07:00 12/05/24 17:08 1 STRIP Insulin Human Regular ACHS SC 12/04/24 07:00 12/05/24 11:15 4 UNITS Dextrose 50 ml UD PRN IV 12/03/24 23:00 Sodium Chloride 1,000 ml @ 60 mls/hr [id number] IV 12/04/24 12:30 12/05/24 05:09 60 MLS/HR Acetaminophen 650 mg Q6HP PRN PO 12/04/24 16:45 12/05/24 15:41 650 MG Examination: GENERAL:Normal, MSK:Abnormal, SKIN:Abnormal, NEURO:Normal laboratory and microbiology Laboratory Tests 12/05/24 09:35 12/05/24 08:20 Test 12/05/24 08:20 Range/Units Serum Glucose 165 H 74-106 mg/dL Problem List/Assessment/Plan Problem List/Assessment/Plan Acute kidney injury unknown recent baseline likely in the setting of hypotension Underlying Chronic kidney disease unknown baseline Hypotension Congestive heart failure unknown EF AFib Diabetes Recommendations Gentle IV fluids I NS IV as ordered Kidney ultrasound noted Urine workup noted We will follow for now Discussed with hospitalist strict i and o charting Plan discussed with: Patient JUDIE THIBODEAUX MD Dec 05, 2024 19:39
--- NOTE | 2024-12-05 22:29 | DVHPN2 ---
Progress Note - Dictate Date Seen: Dec 05, 2024 Medical Necessity Reason Pt with a Central, PICC or Fol: No Subjective Patient was seen and evaluated in follow up. No overnight events. Patient is complaining of generalized weakness. Echocardiogram showed an EF of 40%. BUN 80, INDUSTRIAL RADIOGRAPHER 1.86, GLUC 225. Telemetry reviewed. vital signs Vital Sign Date Time Temp Pulse Resp B/P (MAP) Pulse Ox O2 Delivery O2 Flow Rate FiO2 12/05/24 12:39 98.4 87 20 106/63 (77) 97 98.4 12/05/24 08:00 Room Air* 0 21 Total Intake and Output 12/04/24 12/04/24 12/05/24 15:00 23:00 07:00 Intake Total 180 ml 1095 ml Output Total 450 ml Balance 180 ml 645 ml medications Current Medications Medications Dose Ordered Sig/Betty Route Start Time Stop Time Status Last Admin Dose Admin Nitroglycerin 0.4 mg Q5MINP PRN SL 12/03/24 23:00 Morphine Sulfate 2 mg Q30M PRN IV 12/03/24 23:00 Diagnostic Test (Pha) 1 strip ACHS 12/04/24 07:00 12/05/24 11:15 1 STRIP Insulin Human Regular ACHS SC 12/04/24 07:00 12/05/24 11:15 4 UNITS Dextrose 50 ml UD PRN IV 12/03/24 23:00 Sodium Chloride 1,000 ml @ 60 mls/hr [id number] IV 12/04/24 12:30 12/05/24 05:09 60 MLS/HR Acetaminophen 650 mg Q6HP PRN PO 12/04/24 16:45 12/04/24 17:22 650 MG objective GENERAL: Alert and oriented x 3. No acute distress. EYES: PERRL, EOMI. Anicteric. HENT: Moist mucous membranes. LUNGS: Clear to auscultation bilaterally. CARDIOVASCULAR: Regular rate and rhythm. ABDOMEN: Soft, non-tender and non-distended. EXTREMITIES: BLE edema. Bilateral venous stasis. Small hematoma. NEUROLOGIC: No focal neurological deficits. SKIN: Warm, dry. laboratory and microbiology Laboratory Tests 12/05/24 09:35 12/05/24 08:20 Test 12/05/24 08:20 Range/Units Serum Glucose 165 H 74-106 mg/dL Problem List Orthostatic hypotension. TERRI. Weakness. Hyponatremia. Elevated troponin. Leg hematoma. Assessment/Plan Continued all current supportive medical care. Morphine for pain management. Nitro SL. Additional plan as per the hospital course. Plan discussed with: Patient SAHARA RAHMAN MD Dec 05, 2024 13:23
[2024-12-06 01:00] VITALS: BP 106/61; PULSE 82; RESP 20; TEMP 97.6; O2SAT 98
[2024-12-06 05:00] VITALS: BP 115/67; PULSE 86; RESP 16; TEMP 97.6; O2SAT 99
[2024-12-06 07:36] LABS: Hematocrit 34.0 % (36.0-46.0); Hemoglobin 11.5 g/dL (12.2-16.2); Mean Corpuscular Hemoglobin 33.7 pg (28.0-32.0); Mean Corpuscular Volume 99.9 fL (80.0-100.0); Nucleated Red Blood Cells % 0.2 %
[2024-12-06 07:46] LABS: Alkaline Phosphatase 59 U/L (46-116); Anion Gap 10 (5-15); BUN/Creatinine Ratio 40.5 (10.0-20.0); Carbon Dioxide 22 mmol/L (20-31); Glucose 79 mg/dL (74-106); Sodium 143 mmol/L (136-145)
[2024-12-06 07:48] LABS: Bilirubin, Total 0.6 mg/dL (0.2-1.0)
[2024-12-06 07:51] LABS: Blood Urea Nitrogen 45 mg/dL (9-23); Chloride 111 mmol/L (98-107); Potassium 2.8 mmol/L (3.5-5.1)
[2024-12-06 07:52] LABS: Alanine Aminotransferase < 9 U/L (7-40); Albumin 3.0 g/dL (3.2-4.8); Calcium 7.3 mg/dL (8.7-10.4); Total Protein 5.6 g/dL (5.7-8.2)
[2024-12-06 08:00] VITALS: PULSE 92
[2024-12-06 09:00] VITALS: BP 115/67; PULSE 78; RESP 16; TEMP 98; O2SAT 97
[2024-12-06] MEDS: POTASSIUM CHL 20 Meq TABLET PO ONE (09:27)
[2024-12-06] MEDS ORDERED: DOXY-346 PO (10:49)
--- NOTE | 2024-12-06 10:53 | DVHPN2 ---
Progress Note Date Seen: Dec 06, 2024 Medical Necessity Reason Pt with a Central, PICC or Fol: No Objective vital signs Vital Sign Date Time Temp Pulse Resp B/P (MAP) Pulse Ox O2 Delivery O2 Flow Rate FiO2 12/06/24 09:00 98.0 78 16 115/67 (83) 97 98.0 12/05/24 20:00 Room Air* 0 21 Total Intake and Output 12/05/24 12/05/24 12/06/24 15:00 23:00 07:00 Intake Total 1185 ml 1354.4 ml Output Total 200 ml Balance 985 ml 1354.4 ml medications Current Medications Medications Dose Ordered Sig/Betty Route Start Time Stop Time Status Last Admin Dose Admin Nitroglycerin 0.4 mg Q5MINP PRN SL 12/03/24 23:00 Morphine Sulfate 2 mg Q30M PRN IV 12/03/24 23:00 Diagnostic Test (Pha) 1 strip ACHS 12/04/24 07:00 12/06/24 06:42 1 STRIP Insulin Human Regular ACHS SC 12/04/24 07:00 12/05/24 22:00 2 UNITS Dextrose 50 ml UD PRN IV 12/03/24 23:00 Sodium Chloride 1,000 ml @ 60 mls/hr [id number] IV 12/04/24 12:30 12/06/24 00:14 60 MLS/HR Acetaminophen 650 mg Q6HP PRN PO 12/04/24 16:45 12/06/24 10:19 650 MG Examination: GENERAL:Normal, CVS:Normal laboratory and microbiology Laboratory Tests 12/06/24 06:37 Test 12/06/24 06:37 Range/Units Serum Glucose 79 74-106 mg/dL Problem List/Assessment/Plan Problem List/Assessment/Plan Acute kidney injury unknown recent baseline likely in the setting of hypotension Underlying Chronic kidney disease unknown baseline Hypotension Congestive heart failure unknown EF AFib Diabetes potassium po luda resolved Kidney ultrasound noted strict i and o charting Plan discussed with: Patient DIANA BELTRAN MD Dec 06, 2024 10:53
--- NOTE | 2024-12-06 12:52 | DVHDS2 ---
Discharge Summary Date of Admission Dec 03, 2024 at 22:46 Date of Discharge: Dec 06, 2024 Labs/Diagnostic Data: Laboratory Results Test 12/06/24 06:37 12/06/24 06:28 12/04/24 09:05 12/04/24 07:58 White Blood Count 5.6 10^3/uL (4.4-10.8) Red Blood Count 3.40 10^6/uL (4.0-5.20) Hemoglobin 11.5 g/dL (12.2-16.2) Hematocrit 34.0 % (36.0-46.0) Mean Corpuscular Volume 99.9 fL (80.0-100.0) Mean Corpuscular Hemoglobin 33.7 pg (28.0-32.0) Mean Corpuscular Hemoglobin Concent 33.8 g/dL (32.0-36.0) Red Cell Distribution Width 14.3 % (11.8-14.3) Platelet Count 194 10^3/uL (140-450) Mean Platelet Volume 6.8 fL (6.9-10.8) Neutrophils (%) (Auto) 64.2 % (37.0-80.0) Lymphocytes (%) (Auto) 20.9 % (10.0-50.0) Monocytes (%) (Auto) 13.2 % (0.0-12.0) Eosinophils (%) (Auto) 1.2 % (0.0-7.0) Basophils (%) (Auto) 0.5 % (0.0-2.0) Neutrophils # (Auto) 3.6 10 ^3/uL (1.6-8.6) Lymphocytes # (Auto) 1.2 10 ^3/uL (0.4-5.4) Monocytes # (Auto) 0.7 10 ^3/uL (0-1.3) Eosinophils # (Auto) 0.1 10 ^3/uL (0-0.8) Basophils # (Auto) 0 10 ^3/uL (0-0.2) Nucleated Red Blood Cells 0.2 % Sodium Level 143 mmol/L (136-145) Potassium Level 2.8 mmol/L (3.5-5.1) Chloride Level 111 mmol/L (98-107) Carbon Dioxide Level 22 mmol/L (20-31) Anion Gap 10 (5-15) Blood Urea Nitrogen 45 mg/dL (9-23) Creatinine 1.11 mg/dL (0.550-1.02) Glomerular Filtration Rate Calc 48 mL/min (>90) BUN/Creatinine Ratio 40.5 (10.0-20.0) Serum Glucose 79 mg/dL (74-106) Hemoglobin A1c 5.4 % A1C (<5.7) Calcium Level 7.3 mg/dL (8.7-10.4) Total Bilirubin 0.6 mg/dL (0.2-1.0) Aspartate Amino Transferase (AST) 18 U/L (13-40) Alanine Aminotransferase (ALT) < 9 U/L (7-40) Alkaline Phosphatase 59 U/L (46-116) Total Protein 5.6 g/dL (5.7-8.2) Albumin 3.0 g/dL (3.2-4.8) POC Glucose 114 mg/dl (70-106) Differential Total Cells Counted 100.0 (100) Neutrophils % (Manual) 70 (37.0-80.0) Band Neutrophils % (Manual) 1 Lymphocytes % (Manual) 10 (10.0-50.0) Monocytes % (Manual) 18 (0-12) Eosinophils % (Manual) 1 (0-7) Basophils % (Manual) 0 (0.0-2.0) Metamyelocytes % (manual) 0 Myelocytes % (Manual) 0 Promyelocytes % (Manual) 0 Blast Cells % (Manual) 0 Reactive Lymphocytes 0 Platelet Estimate Adequate Troponin I High Sensitivity 65 ng/L (</=34) Urine Color Straw (Yellow) Urine Clarity Clear (Clear) Urine pH 5.5 (5.0-9.0) Urine Specific [place] 1.007 (1.001-1.035) Urine Protein Negative (Negative) Urine Ketones Negative (Negative) Urine Blood Negative /uL (Negative) Urine Nitrite Negative (Negative) Urine Bilirubin Negative (Negative) Urine Urobilinogen Normal mg/dL (Negative) Urine Leukocyte Esterase 3+ /uL (Negative) Urine RBC 2 /hpf (0 - 4) Urine Microscopic WBC 50 /HPF (0-5) Urine Squamous Epithelial Cells Few /hpf (<5) Urine Bacteria Few /hpf (None Seen) Urine Glucose Normal mg/dL (Normal) Test 12/04/24 04:17 12/04/24 00:00 12/03/24 14:49 Influenza Type A Antigen Negative (Negative) Influenza Type B Antigen Negative (Negative) SARS-CoV-2 Antigen (Rapid) Negative (NEGATIVE) Prothrombin Time 13.5 sec (9.3-11.8) Prothrombin Time INR 1.31 (0.9-1.15) Lactic Acid Level 1.1 mmol/L (0.4-2.0) B-Type Natriuretic Peptide 404.68 pg/mL (0-100) Other Laboratory Tests 12/06/24 06:37 Brief Hx & Hospital Course: Patient is a 89-year-old female with past medical history of hypertension, CKD, type 2 diabetes, CHF, atrial fibrillation who presented with complaints of generalized weakness. Patient was noted to be orthostatic had a temperature recorded of 100.2. Laboratory findings on admission did not reveal any leukocytosis. Patient's BUN/creatinine was 103/2.83 with electrolyte derangements. Troponin was elevated at 55 and peaked to 65 without any complaints of chest pain. Patient did not meet criteria for sepsis as presentation was consistent with hypovolemia due to decreased p.o. intake. Nephrology was consulted and patient was started on IV fluids. Patient's renal function subsequently improved to BUN/creatinine of 45/1.11 prior to discharge. Patient underwent a TTE which showed reduced systolic ejection fraction of 40% with calcified mitral leaflets and moderate mitral regurg and tricuspid regurgitation. Patient was noted to have lower extremity wounds and was discharged on doxycycline 100 mg p.o. twice daily for 5 days. Patient's cardiac medications continue on discharge. Patient underwent a CT of the right knee without contrast due to a fall and was noted that she had soft tissue and Jer present. Patient was able to ambulate to the restroom with assistance of walker. Overall, patient discharged home with home health for physical therapy. She has to follow-up with cardiology, nephrology. Home medications continued. [facility] case management arrange follow-up appointments. Condition at Discharge: Good Final Diagnosis/Problems List Dehydration Secondary Diagnosis: TERRI due to VMN from dehydration CHF, HFrEF 40%, chronic Type 2 DM Fall with Knee Contusion Discharge Disposition: Home Discharge Instruct/Medications Diet: Cardiac 2g Na,low cholest Activity: No Restrictions, As Tolerated Medications: Doxycycline 100mg twice a day for 5 days for leg wounds Scheduled Apixaban Base (Eliquis), Unknown Dose PO BID, (Reported) Carvedilol (Carvedilol), Unknown Dose PO BID, (Reported) Doxycycline (Monohydrate) (Doxycycline), 100 MG PO BID Gabapentin (Gabapentin), Unknown Dose PO BID, (Reported) Metoprolol Succinate (Toprol Xl), 1 TAB PO DAILY Sitagliptin Phosphate (Januvia), 1 TAB PO DAILY, (Reported) Spironolactone (Spironolactone), 1 TAB PO DAILY, (Reported) Miscellaneous Medications Trazodone Hcl (Trazodone Hcl), Unknown Dose PO, (Reported) Triamcinolone Acetonide (Triamcinolone Acetonide), 1 APPLIC TOP, (Reported) Discontinued Medications Bumetanide (Bumetanide), 0.5 TAB PO DAILY Furosemide (Lasix), 2 TAB PO BID Ipratropium-Albuterol (Ipratropium [place]/Albut), 1 CELINE IN Q4HP PRN Discharge Statement: "Patient was advised to return to the ER or call 911 if any headaches, dizziness, shortness of breath, chest pain, abdominal pain, bleeding, fevers, or worsening of medical condition. Patient was counseled about treatment plan, medications, possible side effects, patientverbalized understanding. All questions were answered to the best of my ability. This discharge took greater then 30 minutes in planning, reviewing documentation, counseling the patient, and discussing with other team members." ASSESSMENT ASSESSMENT Assessment Dehydration GARRETT ARANDA DO Dec 06, 2024 12:52
[2024-12-06 13:00] VITALS: BP 113/66; PULSE 80; RESP 18; TEMP 97.5; O2SAT 100
[2024-12-06] MEDS ORDERED: APIX2.5T PO (13:25)
[2024-12-06] MEDS ORDERED: CARV3.1240 PO (13:25)
[2024-12-06] MEDS ORDERED: GABA-1308 PO (13:25)
[2024-12-06] MEDS ORDERED: TRAZ-228 PO (13:25)
[2024-12-06] MEDS ORDERED: SPIR50TA5 PO (13:25)
[2024-12-06] MEDS ORDERED: SITA50TA PO (13:25)
[2024-12-06] MEDS ORDERED: TRIA0.1P2 TOP (13:25)
--- NOTE | 2024-12-06 23:31 | DVHPN2 ---
Progress Note - Dictate Date Seen: Dec 06, 2024 Medical Necessity Reason Pt with a Central, PICC or Fol: No Subjective Patient was seen and evaluated in follow up. Patient has no new complaints at this time. Patient denies any cardiac symptoms. Patient is cardiac stable for discharge. Telemetry reviewed. vital signs Vital Sign Date Time Temp Pulse Resp B/P (MAP) Pulse Ox O2 Delivery O2 Flow Rate FiO2 12/06/24 13:00 97.5 80 18 113/66 (82) 100 97.5 12/06/24 08:00 Room Air* 0 21 Total Intake and Output 12/05/24 12/05/24 12/06/24 15:00 23:00 07:00 Intake Total 1185 ml 1354.4 ml Output Total 200 ml Balance 985 ml 1354.4 ml objective GENERAL: Alert and oriented x 3. No acute distress. EYES: PERRL, EOMI. Anicteric. HENT: Moist mucous membranes. LUNGS: Clear to auscultation bilaterally. CARDIOVASCULAR: Regular rate and rhythm. ABDOMEN: Soft, non-tender and non-distended. EXTREMITIES: BLE edema. Bilateral venous stasis. Small hematoma. NEUROLOGIC: No focal neurological deficits. SKIN: Warm, dry. laboratory and microbiology Laboratory Tests 12/06/24 06:37 Test 12/06/24 06:37 Range/Units Serum Glucose 79 74-106 mg/dL Problem List Orthostatic hypotension. TERRI. Weakness. Hyponatremia. Elevated troponin. Leg hematoma. Assessment/Plan Continued all current supportive medical care. Morphine for pain management. Nitro SL. Additional plan as per the hospital course. Plan discussed with: Patient SAHARA RAHMAN MD Dec 06, 2024 23:31
== END 2024-12-06 14:30 | disposition home health service (06) | DRG 640 ==
LOC: ER 12:00 → EDBD 12:00 → OVERFLOW 22:46 → TELE-WESTW 12-04 15:30
PROVIDERS: ADMIT Internal Medicine; ATTEND Internal Medicine
DX: E86.0 Dehydration (principal); N17.0 Acute kidney failure with tubular necrosis; I13.0 Hypertensive heart and chronic kidney disease with heart failure and stage 1 through stage 4 chronic kidney disease, or unspecified chronic kidney disease; I50.22 Chronic systolic (congestive) heart failure; I95.1 Orthostatic hypotension; E87.1 Hypo-osmolality and hyponatremia; Z20.822 Contact with and (suspected) exposure to COVID-19; E11.22 Type 2 diabetes mellitus with diabetic chronic kidney disease; I48.91 Unspecified atrial fibrillation; N18.9 Chronic kidney disease, unspecified; N28.1 Cyst of kidney, acquired; I25.10 Atherosclerotic heart disease of native coronary artery without angina pectoris; E11.65 Type 2 diabetes mellitus with hyperglycemia; S80.01XA Contusion of right knee, initial encounter; I34.0 Nonrheumatic mitral (valve) insufficiency; I07.1 Rheumatic tricuspid insufficiency; Z79.899 Other long term (current) drug therapy; Z79.84 Long term (current) use of oral hypoglycemic drugs; Z79.01 Long term (current) use of anticoagulants; W18.39XA Other fall on same level, initial encounter; Y93.89 Activity, other specified; Y92.89 Other specified places as the place of occurrence of the external cause; Y99.8 Other external cause status
CPT/HCPCS: 36415; 71045; 73700; 76775; 80053; 81001; 82962; 83036; 83605; 83880; 84484; 85007; 85025; 85027; 85610; 87426; 87804; 93005; 93306; 96365; 97110; 97116; G0378; J1815

== ENCOUNTER 2025-02-28 15:13 | Inpatient (IN) | payer OTHER, MEDICAID ==
[~2025-02-28] VITALS: Ht 165.1 cm; Wt 85.9 kg
[~2025-02-28 15:13] MED LIST changes: +APIX2.5T PO; -BUME2TAB5 PO; +CARV3.1240 PO; +CETI-120 PO; +CHOLTAB15 PO; +CINA30TA2 PO; +DOXY-346 PO; +FERR325T20 PO; -FURO1TAB33 PO; +FURO40TA4 PO; +GABA-1308 PO; -IPRA0.00 IN; +SITA100T7 PO; +SITA50TA PO; +SPIR50TA5 PO; +TRAZ-228 PO; +TRIA0.1P2 TOP
--- NOTE | 2025-02-28 15:54 | ED.PDOC ---
Musculoskeletal HPI Comments 89 year old female PMHx a-fib, CHF, CKF, DM, HLD, HTN presents to the ED via EMS with a chief compliant of bilateral leg swelling onset 1 week. Per EMS, patient has been experiencing BLE swelling, pain for the past week, shortness of breath with exertion. She has wounds to BLE, wound care nurse visits 3 times a week. Patient is compliant with medication, has not taken them today. She is able to ambulate with assistance. Denies fever, chills, nausea, numbness/tingling, fall, injury, chest pain, dizziness, headache. No other symptoms or modifying factors present at this time. Chief Complaint: Lower Extremity Time Seen by MD: 15:45 Reviewed Notes: Nurses Notes, Medications, Allergies Allergies: Coded Allergies: NO KNOWN ALLERGIES (Unverified , 12/24/21) Home Meds Active Scripts Doxycycline (Monohydrate) (Doxycycline) 100 Mg Tab, 100 MG PO BID for 5 Days, #10 TAB 0 Refills Prov:GARRETT ARANDA DO 12/06/24 Metoprolol Succinate (Toprol Xl) 50 Mg Tab, 1 TAB PO DAILY, #30 TAB 5 Refills Prov:GULSHAN ZIMMERMAN MD 12/25/21 Reported Medications Triamcinolone Acetonide (Triamcinolone Acetonide) 0.1 % Pst, 1 APPLIC TOP, APPLIC 12/06/24 Sitagliptin Phosphate (Januvia) 50 Mg Tab, 1 TAB PO DAILY, #30 TAB 5 Refills 12/06/24 Trazodone Hcl (Trazodone Hcl) 100 Mg Tab, PO, MG 12/06/24 Gabapentin (Gabapentin) 100 Mg Cap, PO BID for 30 Days, MG 12/06/24 Spironolactone (Spironolactone) 50 Mg Tab, 1 TAB PO DAILY, #30 TAB 5 Refills 12/06/24 Carvedilol (Carvedilol) 3.125 Mg Tab, PO BID, #60 TAB 3 Refills 12/06/24 Apixaban Base (ELIQUIS) 2.5 Mg Tab, PO BID, TAB 12/06/24 Information Source: Patient, Emergency Med Personnel Mode of Arrival: EMS Location: Bilateral Extremity Location: Leg Timing: Weeks Prehospital treatment: None Severity: Moderate Able to Move Extremity: Yes Bear Weight: Limited Pain: Moderate Mechanism: Spontaneous Circumstances: Spontaneous Onset of Symptoms: Spontaneous Symptoms: Swelling, Pain DVT Risk Factors: CHF Associated signs and symptoms: Swelling, Leg pain Past Medical History PAST MEDICAL HISTORY: AFIB, CHF, CKF, DM, High Lipids, HTN Surgical History: Hysterectomy, Tonsillectomy FREELANCE PATTERNMAKER History: No Pertinent FREELANCE PATTERNMAKER History Family History Family History: Reviewed,noncontributory to illness Social History Smoker: Non-Smoker, Quit Greater Than 1 Year Alcohol: Denies ETOH Use Drugs: Denies Drug Use Lives In: Home Constitutional: denies: chills, diaphoresis, fatigue, fever, malaise, sweats, weakness, others EENTM: denies: blurred vision, double vision, ear bleeding, ear discharge, ear drainage, ear pain, ear ringing, eye pain, eye redness, hearing loss, mouth pain, mouth swelling, nasal discharge, nose bleeding, nose congestion, nose pain, photophobia, tearing, throat pain, throat swelling, voice changes, others Respiratory: reports: SOB with excertion; denies: cough, hemoptysis, orthopnea, SOB at rest, shortness of breath, stridor, wheezing, others Cardiovascular: denies: chest pain, dizzy spells, diaphoresis, Dyspnea on exert ion, edema, irregular heart beat, left arm pain, lightheadedness, palpitations, PND, syncope, others Gastrointestinal: denies: abdomen distended, abdominal pain, blood streaked bowels, constipated, diarrhea, dysphagia, difficulty swallowing, hematemesis, melena, nausea, poor appetite, poor fluid intake, rectal bleeding, rectal pain, vomiting, others Genitourinary: denies: abnormal vagina bleeding, burning, dyspareunia, dysuria, flank pain, frequency, hematuria, incontinence, pain, , vagina discharge, urgency, others Neurological: denies: dizziness, fainting, headache, left sided numbness, left sided weakness, numbness, paresthesia, pre-existing deficit, right sided numbness, right sided weakness, seizure, speech problems, tingling, tremors, weakness, others Musculoskeletal: reports: others (BLE swelling, pain); denies: back pain, gout, joint pain, joint swelling, muscle pain, muscle stiffness, neck pain Integumetry: denies: bruises, change in color, change in hair/nails, dryness, laceration, lesions, lumps, rash, wounds, others Allergic/Immunocompromised: denies: Difficulty Healing, Frequent Infections, Hives, Itching, others Hematologic/Lymphatic: denies: anemia, blood clots, easy bleeding, easy bruising, swollen glands, others Endocrine: denies: excessive hunger, excessive sweating, excessive thirst, excessive urination, flushing, intolerance to cold, intolerance to heat, unexplained weight gain, unexplained weight loss, others Psychiatric: denies: anxiety, bipolar disorder, depression, hopeless, panic disorder, schizophrenia, sleepless, suicidal, others All Other Systems: Reviewed and Negative Physical Exam General Appearance: Mild Distress HEENT: Normal ENT Inspection, Pharynx Normal, TMs Normal Neck: Full Range of Motion, Non-Tender, Normal, Normal Inspection Respiratory: Chest Non-Tender, Lungs Clear, No Accessory Muscle Use, No Respiratory Distress, Normal Breath Sounds Cardiovascular: No Edema, No JVD, No Murmur, No Gallop, Normal Peripheral Pulses, Regular Rate/Rhythm Breast Exam: Deferred Gastrointestinal: No Organomegaly, Non Tender, No Pulsatile Mass, Normal Bowel Sounds, Soft Genitalia: Deferred Pelvic: Deferred Rectal: Deferred Extremities: Pedal edema Musculoskeletal : Apperance: Normal Neurologic: Alert, door patcher II-XII nml as Tested, Motor Weakness, Normal Affect, Normal Mood, No Sensory Deficits Cerebellar Function: Normal Reflexes: Normal Skin: Dry, Pallor, Warm Lymphatic: No Adenopathy Was a procedure done? Was a procedure done?: No EKG EKG : Pulse Rate (adult): 95 Cardiac Rhythm: Afib Differential Diagnosis EXT Differential Diagnosis: CHF, Fracture, Sprain, Bursitis X-Ray, Labs, Meds, VS Vital Signs Date Time Temp Pulse Resp B/P (MAP) Pulse Ox O2 Delivery O2 Flow Rate FiO2 02/28/25 16:20 97.9 97 18 112/83 (93) 98 97.9 02/28/25 16:20 116 18 97 Room Air* 0 21 02/28/25 16:00 129/72 02/28/25 15:54 95 02/28/25 15:26 95 02/28/25 15:26 97.9 91 20 114/79 97 97.9 Lab Test 02/28/25 16:06 Range/Units White Blood Count 6.0 4.4-10.8 10^3/uL Red Blood Count 4.33 4.0-5.20 10^6/uL Hemoglobin 14.7 12.2-16.2 g/dL Hematocrit 45.7 36.0-46.0 % Mean Corpuscular Volume 105.5 H 80.0-100.0 fL Mean Corpuscular Hemoglobin 33.9 H 28.0-32.0 pg Mean Corpuscular Hemoglobin Concent 32.1 32.0-36.0 g/dL Red Cell Distribution Width 15.9 H 11.8-14.3 % Platelet Count 142 140-450 10^3/uL Mean Platelet Volume 8.1 6.9-10.8 fL Neutrophils (%) (Auto) 73.4 37.0-80.0 % Lymphocytes (%) (Auto) 13.4 10.0-50.0 % Monocytes (%) (Auto) 12.2 H 0.0-12.0 % Eosinophils (%) (Auto) 0.6 0.0-7.0 % Basophils (%) (Auto) 0.4 0.0-2.0 % Neutrophils # (Auto) 4.4 1.6-8.6 10 ^3/uL Lymphocytes # (Auto) 0.8 0.4-5.4 10 ^3/uL Monocytes # (Auto) 0.7 0-1.3 10 ^3/uL Eosinophils # (Auto) 0 0-0.8 10 ^3/uL Basophils # (Auto) 0 0-0.2 10 ^3/uL Nucleated Red Blood Cells 0.3 % Sodium Level 143 136-145 mmol/L Potassium Level 5.3 H 3.5-5.1 mmol/L Chloride Level 111 H 98-107 mmol/L Carbon Dioxide Level 21 20-31 mmol/L Anion Gap 11 5-15 Blood Urea Nitrogen 45 H 9-23 mg/dL Creatinine 1.68 H 0.550-1.02 mg/dL Glomerular Filtration Rate Calc 29 >90 mL/min BUN/Creatinine Ratio 26.8 H 10.0-20.0 Serum Glucose 160 H 74-106 mg/dL Calcium Level 8.9 8.7-10.4 mg/dL Troponin I High Sensitivity 62 *H </=34 ng/L B-Type Natriuretic Peptide 941.94 0-100 pg/mL Current Medications Medications (Trade) Dose Ordered Sig/Betty Route Start Time Stop Time Status Last Admin Furosemide (Lasix Injection) 40 mg ONCE ONCE IV 02/28/25 16:00 02/28/25 16:01 DC 02/28/25 16:00 PROCEDURE(s): CXRP - CHEST PORTABLE IMPRESSION: 1. Cardiomegaly and interstitial prominence which may be due to CHF and/or reactive airways disease. 2. Atherosclerotic vascular disease and possible pulmonary arterial hypertension. The patient was given Lasix 40 mg IV push The patient's CBC is within normal limits The chemistry panel shows a BUN of 45 and a creatinine of 1.68 with potassium of 5.3 The 1st troponin level is 62 The BNP is 941.94 We are currently contacting the [facility] physician for possible admission They will make the final disposition at this time. Images Reviewed?: Images reviewed and evaluated by me Time of 1ST Reevaluation: 16:15 Reevaluation 1ST: Unchanged Patient Education/Counseling: Diagnosis, Treatment, Prognosis Family Education/Counseling: No Family Present Departure 1 Departure Time of Disposition: 17:25 Impression: Primary Impression: Pedal edema Additional Impressions: Acute on chronic diastolic heart failure Autonomic dysfunction Hyperkalemia Disposition: ADMITTED INPATIENT Admit to: Med Surg Condition: Fair Critical Care Note Critical Care Time?: No Stability Stability form required: Yes Unstable for transfer: ED Physician Assesment (Clinical assesment) Heart Score Heart Score: Heart Score Response (Comments) Value History Slightly Suspicious 0 EKG Normal 0 Age <45 0 Risk Factors No known risk factors 0 Troponin Normal limit 0 Total 0 I personally scribed for CAMILA VALDES MD ([email or web address]) on 02/28/25 at 15:54. Electronically submitted by Yris Mcconnell ([email or web address]). I personally scribed for CAMILA VALDES MD ([email or web address]) on 02/28/25 at 16:34. Electronically submitted by Yris Mcconnell ([email or web address]). CAMILA VALDES MD Feb 28, 2025 15:54
[2025-02-28] MEDS: FUROSEMIDE 40 MG/4 ML VIAL IV ONE ×2 (16:00→23:11)
[2025-02-28 16:20] VITALS: PULSE 116; RESP 18; O2SAT 97
[2025-02-28 16:21] LABS: Hematocrit 45.7 % (36.0-46.0); Hemoglobin 14.7 g/dL (12.2-16.2); Mean Corpuscular Hemoglobin 33.9 pg (28.0-32.0); Mean Corpuscular Volume 105.5 fL (80.0-100.0); Nucleated Red Blood Cells % 0.3 %
[2025-02-28 16:31] LABS: Sodium 143 mmol/L (136-145)
--- NOTE | 2025-02-28 16:31 | DVH ---
EXAM: XY CHEST PORTABLE HISTORY: sob COMPARISON: XY CHEST PORTABLE on DOS: 12/03/24, CHEST PORTABLE on DOS: 12/24/21, CXRP on DOS: 12/24/21 TECHNIQUE: Portable AP view of the chest was performed. FINDINGS: There is interstitial prominence, greater centrally. There is left lung base Scarring. No pneumothora x or new infiltrates. The heart is enlarged. The aortic arch is calcific. The central pulmonary art eries are likely ectatic. IMPRESSION: 1. Cardiomegaly and interstitial prominence which may be due to CHF and/or reactive airways disease. 2. Atherosclerotic vascular disease and possible pulmonary arterial hypertension.
[2025-02-28 16:32] LABS: Anion Gap 11 (5-15); Calcium 8.9 mg/dL (8.7-10.4); Carbon Dioxide 21 mmol/L (20-31)
[2025-02-28 16:37] LABS: BUN/Creatinine Ratio 26.8 (10.0-20.0)
[2025-02-28 16:39] LABS: Blood Urea Nitrogen 45 mg/dL (9-23); Chloride 111 mmol/L (98-107); Glucose 160 mg/dL (74-106); Potassium 5.3 mmol/L (3.5-5.1)
[2025-02-28 17:25] LABS: Urine Protein, UAD TRACE (Negative)
[2025-02-28] MEDS ORDERED: MORPHINE SULFATE INJ 2 MG/ml SYRG IV PRN (18:15)
[2025-02-28] MEDS ORDERED: ACETAMINOPHEN 325 MG TAB PO PRN (18:15)
[2025-02-28] MEDS ORDERED: NITROGLYCERIN 0.4 MG SL TAB SL PRN (18:15)
[2025-02-28] MEDS ORDERED: FUROSEMIDE 40 MG/4 ML VIAL IV ONE (18:30)
--- NOTE | 2025-02-28 18:36 | ECG ---
[facility] Test Date: 2025-02-28 Test Time: 15:26:04 Pat Name: CHIVO ESPINOSA Department: [facility] ED Room: 0231T Gender: F Glass Curvature Gauger: VLAD : 1935 Requested By: CAMILA VALDES Order Number: [id number] Reading MD: Gibson Lucas Measurements Intervals [place] Rate: 95 P: 0 OH: 0 QRS: 176 QRSD: 94 T: 33 QT: 370 QTc: 465 Interpretive Statements Atrial fibrillation Borderline low voltage, extremity leads Consider right ventricular hypertrophy Abnormal lateral Q waves Electronically Signed On 03-05-2025 20:27:14 PDT by Gibson Lucas Please click the below link to view image of tracing.
[2025-02-28 18:39] LABS: Amphetamine Screen, Urine Neg (NEGATIVE); Barbiturate Scree,Urine Neg (NEGATIVE); Benzodiazephine Screen, Urine Neg (NEGATIVE); Cannabinoid Screen, Urine Neg (NEGATIVE); Cocaine Screen, Urine Neg (NEGATIVE); Opiate Scree,Urine Neg (NEGATIVE); Phencyclidine Screen, Urine Neg (NEGATIVE)
--- NOTE | 2025-02-28 18:49 | DVH ---
Bilateral lower extremity venous duplex Clinical History: swelling and pain Comparison: None Technique: Duplex Doppler evaluation of the deep venous systems of both lower extremities from the common femora l veins to the popliteal veins including color Doppler and spectral/pulsed waveform analysis was perf ormed. Findings: RIGHT SIDE: The common femoral vein demonstrates noncompressibility of the right common femoral vein There is non compressibility of the great saphenous vein at the proximal thigh. The femoral vein demonstrates noncompressibility of the right femoral vein The deep femoral vein demonstrates appropriate compressibility and waveform variability. The popliteal vein demonstrates appropriate compressibility and waveform variability. There is normal compressibility at the tibioperoneal trunk. LEFT SIDE: The common femoral vein demonstrates noncompressibility of the left common femoral vein. There is non compressibility of the great saphenous vein at the proximal thigh. The femoral vein demonstrates non compressibility and waveform variability. The deep femoral vein demonstrates non compressibility and waveform variability. The popliteal vein demonstrates non compressibility and waveform variability. There is normal compressibility at the tibioperoneal trunk. Impression: 1. Findings are consistent with nonobstructing deep venous thrombosis bilaterally. CRITICAL FINDINGS Critical Result: Nonobstructing bilateral DVT lower extremity. Findings discussed with Tatiana URRUTIA , at 02/28/2025 06:42 PM, and acknowledged receipt and understanding of the findings. ..
[2025-02-28] MEDS: ONDANSETRON HCL 4 MG/2 ML VIAL IV PRN (19:04)
[2025-02-28] MEDS: MORPHINE SULFATE 4 MG/ML SYR/VIAL IV PRN (19:04)
[2025-02-28 22:13] LABS: Hematocrit 43.4 % (36.0-46.0); Hemoglobin 13.9 g/dL (12.2-16.2); Mean Corpuscular Hemoglobin 33.8 pg (28.0-32.0); Mean Corpuscular Volume 105.3 fL (80.0-100.0); Nucleated Red Blood Cells % 0.4 %
[2025-02-28 22:19] VITALS: BP 113/82; PULSE 64; RESP 17; O2SAT 99
[2025-02-28 22:27] LABS: INR 1.31 (0.9-1.15); Partial Thromboplastin Time 29.9 SEC (24.5-34.5); Prothrombin Time 13.5 sec (9.3-11.8)
[2025-02-28 22:31] VITALS: BP 113/82; PULSE 64; RESP 17; TEMP 98.7; O2SAT 99
[2025-02-28] MEDS: HEPARIN DRIP/D5W 100UNITS/ML 250 ML IV SCH (22:58)
[2025-02-28] MEDS: HEPARIN SODIUM (PORCINE) 5000 UNITS/ML 1ML VIAL IV ONE (23:08)
[2025-03-01] VITALS (7 sets, daily range): BP systolic 99–140; BP diastolic 60–80; PULSE 86–126; RESP 16–20; TEMP 96.6–98; O2SAT 2–100
[2025-03-01] MEDS: HEPARIN SODIUM (PORCINE) 5000 UNITS/ML 1ML VIAL IV ONE (00:22)
--- NOTE | 2025-03-01 00:30 | CONS ---
Pharmacy Clinical Information: H/H=13.9/43.4, AOL=582, DVT/PE PROTOCOL ORDERED. CANNOT FIND INHOUSE [facility] DOC UMENTATION IN WHY THEY WOULD HOLD A BOLUS. 9000 UNITS X 1 BOLUSED THEN STARTED RATE AT 2000 UNITS/HR. PTT=29.9, PT=13.5, INR=1.31. NEXT PTT @ 0700. MERARY MASON Mar 01, 2025 00:30
[2025-03-01] MEDS: HYDROcodone-ACET 5/325MG TAB PO PRN (02:27)
[2025-03-01] MEDS: FUROSEMIDE 40 MG/4 ML VIAL IV SCH (05:43)
--- NOTE | 2025-03-01 08:13 | DVHHP2 ---
Admitting Diagnosis: Lower Extremity Edema History of Present Illness HPI Patient is an 89-year-old female with past medical history of HFrEF, LVEF of 40% with moderate mitral regurgitation and tricuspid regurgitation, history of lower extremity DVTs, CKD, type 2 diabetes, atrial fibrillation who presented with complaints of worsening lower extremity edema. Patient appears to be living at home with family member who provides her care but it has been increasingly difficult to provide wound care for her lower extremities. Patient is noted to have bandaged lower extremities. Imaging was notable for bilateral lower extremity DVTs. Patient was also noted to have significant lower extremity edema up to her thighs. Patient was admitted for further medical management of her CHF and lower extremities. Home Meds Active Scripts Doxycycline (Monohydrate) (Doxycycline) 100 Mg Tab, 100 MG PO BID for 5 Days, #10 TAB 0 Refills Prov:GARRETT ARANDA DO 12/06/24 Metoprolol Succinate (Toprol Xl) 50 Mg Tab, 1 TAB PO DAILY, #30 TAB 5 Refills Prov:GULSHAN ZIMMERMAN MD 12/25/21 Reported Medications Cetirizine Hcl (CETIRIZINE HCL ALLERGY CH) 5 Mg/5 Ml Antonina, 5 MG PO, ML pt states she takes 10mg daily 03/01/25 Gabapentin (Gabapentin) 100 Mg Cap, 100 CAP PO TID, #90 CAP 2 Refills 03/01/25 Simvastatin (Simvastatin) 10 Mg Tab, 1 TAB PO QPM, #30 TAB 5 Refills pt states she takes 5mg daily 03/01/25 Cetirizine Hcl (Kls Aller-Arlin) 10 Mg Tab, 10 MG PO, TAB 03/01/25 Sitagliptin Phosphate (Januvia) 100 Mg Tab, 100 MG PO, TAB 03/01/25 Diltiazem Hcl (DILTIAZEM HCL ER) 240 Mg Cap, 1 CAP PO DAILY, #30 CAP 5 Refills 03/01/25 Cinacalcet Hydrochloride (Sensipar) 30 Mg Tab, 30 MG PO, TAB 03/01/25 Triamcinolone Acetonide (Triamcinolone Acetonide) 0.1 % Pst, 1 APPLIC TOP, APPLIC 12/06/24 Sitagliptin Phosphate (Januvia) 50 Mg Tab, 1 TAB PO DAILY, #30 TAB 5 Refills 12/06/24 Trazodone Hcl (Trazodone Hcl) 100 Mg Tab, PO, MG 12/06/24 Gabapentin (Gabapentin) 100 Mg Cap, PO BID for 30 Days, MG 12/06/24 Spironolactone (Spironolactone) 50 Mg Tab, 1 TAB PO DAILY, #30 TAB 5 Refills 12/06/24 Carvedilol (Carvedilol) 3.125 Mg Tab, PO BID, #60 TAB 3 Refills 12/06/24 Apixaban Base (ELIQUIS) 2.5 Mg Tab, PO BID, TAB 12/06/24 Past Medical History Cardiac: AFIB, HTN Renal/: CKD Review of Systems Constitutional: Weakness Cardiovascular: Edema H&P Exam Vital Signs Vital Signs Date Time Temp Pulse Resp B/P (MAP) Pulse Ox O2 Delivery O2 Flow Rate FiO2 03/01/25 07:30 18 2 Nasal Cannula* 2 28 03/01/25 05:43 99/60 03/01/25 05:00 96.6 86 96.6 General Appeara: Well developed Pulmonary/Respiratory: Normal breath sounds Cardiovascular/Chest: Irregularly irregular SEPSIS Sepsis Screen Date sepsis recognized/suspect: Feb 28, 2025 Time Sepsis recognized/suspect: 1629 Recent Procedure: No On Antibiotic Therapy: No Respiratory Rate >20: No Heart Rate >90: Yes Temp<36 C (96.8 F) or >38.3 C: No SBP <90 or MAP <65 mmHG: No New Acute Mental Status Change: No Is the patient on CPAP, BIPAP,: No Physician Orders Partial Thromboplastin Time (03/01/25 07:00) Heparin Per Pharmacy Protocol (03/01/25 00:29) Vital Signs Date Time Temp Pulse Resp B/P (MAP) Pulse Ox O2 Delivery O2 Flow Rate FiO2 03/01/25 07:30 18 2 Nasal Cannula* 2 28 03/01/25 05:43 99/60 03/01/25 05:00 96.6 86 18 99/60 (73) 100 96.6 Laboratory Tests Test 02/28/25 21:52 White Blood Count 6.8 10^3/uL (4.4-10.8) Medications Medications Dose Ordered Sig/Betty Route Start Time Stop Time Status Last Admin Dose Admin Furosemide 40 mg ONCE ONCE IV 02/28/25 22:00 02/28/25 22:01 DC 02/28/25 23:11 40 MG Heparin Sodium (Porcine) 4,000 units ONCE ONCE IV 03/01/25 00:15 03/01/25 00:16 DC 03/01/25 00:22 4,000 UNITS Heparin Sodium (Porcine) MD- IF Bolus NOT required-EN... ONCE ONCE IV 02/28/25 20:45 02/28/25 21:26 DC 02/28/25 23:08 5,000 UNITS Heparin Sodium/ Dextrose 250 ml @ 20 mls/hr [id number] IV 02/28/25 20:45 02/28/25 22:58 20 MLS/HR Labs/Xrays Labs Test 02/28/25 21:52 02/28/25 19:42 02/28/25 16:39 02/28/25 16:06 Range/Units White Blood Count 6.8 4.4-10.8 10^3/uL Red Blood Count 4.12 4.0-5.20 10^6/uL Hemoglobin 13.9 12.2-16.2 g/dL Hematocrit 43.4 36.0-46.0 % Mean Corpuscular Volume 105.3 H 80.0-100.0 fL Mean Corpuscular Hemoglobin 33.8 H 28.0-32.0 pg Mean Corpuscular Hemoglobin Concent 32.1 32.0-36.0 g/dL Red Cell Distribution Width 15.7 H 11.8-14.3 % Platelet Count 169 140-450 10^3/uL Mean Platelet Volume 8.1 6.9-10.8 fL Neutrophils (%) (Auto) 70.7 37.0-80.0 % Lymphocytes (%) (Auto) 13.8 10.0-50.0 % Monocytes (%) (Auto) 14.1 H 0.0-12.0 % Eosinophils (%) (Auto) 0.7 0.0-7.0 % Basophils (%) (Auto) 0.7 0.0-2.0 % Neutrophils # (Auto) 4.8 1.6-8.6 10 ^3/uL Lymphocytes # (Auto) 0.9 0.4-5.4 10 ^3/uL Monocytes # (Auto) 1.0 0-1.3 10 ^3/uL Eosinophils # (Auto) 0.1 0-0.8 10 ^3/uL Basophils # (Auto) 0.1 0-0.2 10 ^3/uL Nucleated Red Blood Cells 0.4 % Prothrombin Time 13.5 H 9.3-11.8 sec Prothrombin Time INR 1.31 H 0.9-1.15 Activated Partial Thromboplast Time 29.9 24.5-34.5 SEC Troponin I High Sensitivity 61 *H </=34 ng/L Urine Color Yellow Yellow Urine Clarity Clear Clear Urine pH 5.5 5.0-9.0 Urine Specific [place] 1.024 1.001-1.035 Urine Protein Trace H Negative Urine Ketones Negative Negative Urine Blood 2+ H Negative /uL Urine Nitrite Negative Negative Urine Bilirubin Negative Negative Urine Urobilinogen 2 H Negative mg/dL Urine Leukocyte Esterase Negative Negative /uL Urine RBC 8 0 - 4 /hpf Urine Microscopic WBC 1 0-5 /HPF Urine Squamous Epithelial Cells Few <5 /hpf Urine Bacteria None seen None Seen /hpf Urine Hyaline Casts Few 0 - 2 /lpf Urine Mucus Few None Seen Urine Glucose Normal Normal mg/dL Urine Opiates Screen Neg NEGATIVE Urine Fentanyl Screen Neg NEGATIVE Urine Barbiturates Screen Neg NEGATIVE Urine Phencyclidine Screen Neg NEGATIVE Urine Amphetamines Screen Neg NEGATIVE Urine Benzodiazepines Screen Neg NEGATIVE Urine Cocaine Screen Neg NEGATIVE Urine Cannabinoids Screen Neg NEGATIVE Sodium Level 143 136-145 mmol/L Potassium Level 5.3 H 3.5-5.1 mmol/L Chloride Level 111 H 98-107 mmol/L Carbon Dioxide Level 21 20-31 mmol/L Anion Gap 11 5-15 Blood Urea Nitrogen 45 H 9-23 mg/dL Creatinine 1.68 H 0.550-1.02 mg/dL Glomerular Filtration Rate Calc 29 >90 mL/min BUN/Creatinine Ratio 26.8 H 10.0-20.0 Serum Glucose 160 H 74-106 mg/dL Calcium Level 8.9 8.7-10.4 mg/dL B-Type Natriuretic Peptide 941.94 0-100 pg/mL Assessment/Plan Primary Diagnosis 1. DVT of Lower Extremity, present on admission 2. Atrial Fibrillation 3. CHF Exacerbation 4. CKD 5. NSTEMI, due to demand Plan: - Heparin drip for lower extremity DVT and atrial fibrillation - Lasix 40 mg IV twice daily - Strict I's and O's -Troponin noted to be in the 60s. Prior admission also noted to be in 60s. Patient denies any chest pain. Likely in the setting of demand ischemia. - Nephrology consulted for TERRI on CKD -Wound care for lower extremities -Home medications resumed per MAR -PT eval pending - Social service consult placed for SNF placement physical therapy. Patient will also need long-term care. - Daily CBC and BMP - Full code Plan discussed with: Patient COLBY ARANDATalon Huffman DO Mar 01, 2025 08:13
[2025-03-01 08:37] LABS: Hematocrit 45.1 % (36.0-46.0); Hemoglobin 14.8 g/dL (12.2-16.2); Mean Corpuscular Hemoglobin 34.1 pg (28.0-32.0); Mean Corpuscular Volume 103.9 fL (80.0-100.0); Nucleated Red Blood Cells % 0.4 %
[2025-03-01 08:51] LABS: Alanine Aminotransferase 14 U/L (7-40); Albumin 3.6 g/dL (3.2-4.8); Alkaline Phosphatase 93 U/L (46-116); Anion Gap 10 (5-15); BUN/Creatinine Ratio 17.3 (10.0-20.0); Bilirubin, Total 0.6 mg/dL (0.2-1.0); Blood Urea Nitrogen 31 mg/dL (9-23); Calcium 9.2 mg/dL (8.7-10.4); Carbon Dioxide 22 mmol/L (20-31); Chloride 109 mmol/L (98-107); Glucose 131 mg/dL (74-106); Potassium 5.1 mmol/L (3.5-5.1); Sodium 141 mmol/L (136-145); Total Protein 6.8 g/dL (5.7-8.2)
--- NOTE | 2025-03-01 10:13 | CONS ---
Pharmacy Clinical Information: HEPARIN DRIP, DVT PROTOCOL @0805 APTT >139 - HOLD INFUSION 1 HOUR AND RESUME AT RATE 1700 UNITS/HR @1030 NEXT APTT DRAW SCHEDULED @1630 PER RX PROTOCOL CONFIRMED AND READ BACK WITH RENAN CUNHA,[facility] RESIDENT Mar 01, 2025 10:13
[2025-03-01] MEDS: HEPARIN DRIP/D5W 100UNITS/ML 250 ML IV SCH ×2 (10:15→20:46)
[2025-03-01] MEDS ORDERED: DILT-29 PO (11:14)
[2025-03-01] MEDS ORDERED: CETI10TA2 PO (11:14)
[2025-03-01] MEDS ORDERED: CETI5SOL52 PO (11:14)
[2025-03-01] MEDS ORDERED: GABA-1308 PO (11:14)
[2025-03-01] MEDS ORDERED: SIMV10TA20 PO (11:14)
[2025-03-01] MEDS: FUROSEMIDE 100 MG/10ML VIAL IV ONE (12:20)
[2025-03-01 12:57] LABS: Protein, Urine 8.2 mg/dL (1-14)
--- NOTE | 2025-03-01 13:50 | DVHCONRES ---
Date Seen: Mar 01, 2025 Resident Creating Document: RAYRAY ASHTON RESIDENT Referring Physician MD Harish Reason for Consultation TERRI on CKD History of Present Illness Patient is an 89-year-old female with past medical history of HFrEF, LVEF of 40% with moderate mitral regurgitation and tricuspid regurgitation, history of lower extremity DVT, CKD, type 2 diabetes, atrial fibrillation presented to the ED with complaints of worsening lower extremity edema. Patient appears to be living at home with family member who provides her care but it has been increasingly difficult to provide wound care for her lower extremities. Patient is noted to have bandaged lower extremities. Imaging was notable for bilateral lower extremity DVTs. Patient was also noted to have significant lower extremity edema up to her thighs. Patient was seen and examined on the bedside. She is alert oriented x3. Complain of bilateral lower extremity pain, swelling and oozing from the wound. Past Medical History CHF, DVT, AFib, hypertension, type 2 diabetes mellitus, CKD Past Surgical History Denies Allergies: Coded Allergies: NO KNOWN ALLERGIES (Unverified , 12/24/21) Home Meds Active Scripts Apixaban Base (ELIQUIS) 5 Mg Tab, 5 MG PO BID for 30 Days, #60 TAB 1 Refill Prov:GARRETT ARANDA DO 03/02/25 Furosemide (Lasix) 40 Mg Tab, 40 MG PO BID for 60 Days, #120 TAB 2 Refills Prov:GARRETT ARANDA DO 03/02/25 Reported Medications Ferrous Sulfate (Ferosul) 325 Mg Tab, 1 TAB PO BID for 30 Days, #60 03/02/25 Cholecalciferol (Gnp Vitamin D Maximum Str) 2,000 Unit Tab, 1 TAB PO DAILY for 90 Days, #90 03/02/25 Furosemide (Furosemide) 40 Mg Tab, 1 TAB PO DAILY for 30 Days, #30 03/02/25 Cetirizine HCl (Cetirizine Hydrochloride) 10 Mg Tab, 1 TAB PO DAILY for 90 Days, #90 03/02/25 Gabapentin (Gabapentin) 100 Mg Cap, 100 CAP PO TID, #90 CAP 2 Refills 03/01/25 Simvastatin (Simvastatin) 10 Mg Tab, 1 TAB PO QPM, #30 TAB 5 Refills pt states she takes 5mg daily 03/01/25 Sitagliptin Phosphate (Januvia) 100 Mg Tab, 1 TAB PO DAILY for 90 Days, #90 03/01/25 Diltiazem Hcl (DILTIAZEM HCL ER) 240 Mg Cap, 1 CAP PO DAILY, #30 CAP 5 Refills 03/01/25 Cinacalcet Hydrochloride (Sensipar) 30 Mg Tab, 1 TAB PO DAILY for 30 Days, #30 03/01/25 Trazodone Hcl (Trazodone Hcl) 100 Mg Tab, 1 TAB PO DAILY for 90 Days, #90 12/06/24 Spironolactone (Spironolactone) 50 Mg Tab, 1 TAB PO DAILY, #30 TAB 5 Refills 12/06/24 Carvedilol (Carvedilol) 3.125 Mg Tab, 1 TAB PO BID for 90 Days, #180 12/06/24 Apixaban Base (ELIQUIS) 2.5 Mg Tab, 1 TAB PO BID for 90 Days, #180 12/06/24 Current Medications Current Medications Medications (Trade) Dose Ordered Sig/Betty Route PRN Reason Start Time Stop Time Status Last Admin Acetaminophen (Tylenol Tablet) 325 mg Q4HP PRN PO MILD PAIN (1-3 PAIN SCALE) 02/28/25 18:15 Acetaminophen/ Hydrocodone Bitart ([place] 5/325MG Tab) 1 tab Q4HP PRN PO MODERATE PAIN (4-6 PAIN SCALE) 02/28/25 18:15 03/01/25 02:27 Ondansetron HCl (Zofran) 4 mg Q4HP PRN IV NAUSEA / VOMITING 02/28/25 18:15 02/28/25 19:04 Morphine Sulfate 2 mg Q4HPRN PRN IV SEVERE PAIN (7-10 PAIN SCALE) 02/28/25 18:30 03/01/25 08:28 Nitroglycerin (Ntrostat Sublingual) 0.4 mg Q5MINP PRN SL FOR CHEST PAIN 02/28/25 18:15 Morphine Sulfate 2 mg Q30M PRN IV FOR CHEST PAIN 02/28/25 18:15 Furosemide (Lasix Injection) 40 mg BIDD IV 03/01/25 06:00 03/01/25 11:05 DC Heparin Sodium/ Dextrose 250 ml @ 20 mls/hr [id number] IV 02/28/25 20:45 03/01/25 10:10 DC 02/28/25 22:58 Heparin Sodium/ Dextrose 250 ml @ 17 mls/hr [id number] IV 03/01/25 10:15 03/01/25 10:15 Furosemide (Lasix Injection) 80 mg BIDD IV 03/01/25 18:00 Review of Systems Constitutional: No: Fever, Chills, Sweats, Weakness, Malaise, Other Eyes: No: Pain, Vision change, Conjunctivae inflammation, Eyelid inflammation, Other, Redness ENT: No: Ear pain, Ear discharge, Nose pain, Nose discharge, Nose congestion, Mouth pain, Mouth swelling, Throat pain, Throat swelling, Other Respiratory: Shortness of breath, improving No: Cough, Dry,Wheezing, Hemoptysis, Pleuritic Pain, Sputum, Wheezing, Other Cardiovascular: No: Chest Pain, Palpitations, Orthopnea, Paroxysmal Noc. Dyspnea, Edema, Lt Headedness, Other Gastrointestinal: No: Nausea, Vomiting, Abdominal Pain, Diarrhea, Constipation, Melena, Hematochezia, Other Musculoskeletal: bilateral leg pain and swelling No: other, neck pain, shoulder pain, arm pain, back pain, hand pain, foot pain Neurological:; No: Weakness, Numbness, Incoordination, Change in speech, Confusion, Seizures Vital Signs Vital Signs Date Time Temp Pulse Resp B/P (MAP) Pulse Ox O2 Delivery O2 Flow Rate FiO2 03/01/25 12:36 97.2 111 16 140/68 (92) 100 97.2 03/01/25 07:30 Nasal Cannula* 2 28 Physical Exam Physical examination: General Appearance: Alert, Oriented X3, Cooperative and on nasal cannula 2 L HEENT: Atraumatic, PERRLA, EOMI, Mucous membrane moist/pink Respiratory: bilateral crackles Cardiovascular: Regular rate, Normal S1, Normal S2, No murmurs, no chest wall tenderness Abdominal: Normal bowel sounds, Soft, No tenderness, No hepatospenomegaly, No masses Extremities: bilateral pedal edema 2+, lower extremities covered with dressing and oozing from the dressing, No clubbing, No cyanosis, Normal pulses. Skin: No rashes, No breakdown, No significant lesion Neuro: Normal speech, Strength at 5/5 X4 ext, Normal tone, Sensation intact, Cranial nerves 3-12 NL, Reflexes 2+ Psych/Mental Status: Mental status NL, Mood NL Labs/Diagnostic Data Labs Test 03/01/25 12:24 03/01/25 08:05 02/28/25 21:52 02/28/25 19:42 Range/Units Urine Creatinine 29.02 L 30.0-125.0 mg/dL Urine Protein/Creatinine Ratio 0.28 Urine Sodium 100 40-220 mmol/L Urine Total Protein 8.2 1-14 mg/dL White Blood Count 7.0 4.4-10.8 10^3/uL Red Blood Count 4.34 4.0-5.20 10^6/uL Hemoglobin 14.8 12.2-16.2 g/dL Hematocrit 45.1 36.0-46.0 % Mean Corpuscular Volume 103.9 H 80.0-100.0 fL Mean Corpuscular Hemoglobin 34.1 H 28.0-32.0 pg Mean Corpuscular Hemoglobin Concent 32.8 32.0-36.0 g/dL Red Cell Distribution Width 15.2 H 11.8-14.3 % Platelet Count 160 140-450 10^3/uL Mean Platelet Volume 8.1 6.9-10.8 fL Neutrophils (%) (Auto) 66.9 37.0-80.0 % Lymphocytes (%) (Auto) 18.9 10.0-50.0 % Monocytes (%) (Auto) 12.4 H 0.0-12.0 % Eosinophils (%) (Auto) 1.3 0.0-7.0 % Basophils (%) (Auto) 0.5 0.0-2.0 % Neutrophils # (Auto) 4.7 1.6-8.6 10 ^3/uL Lymphocytes # (Auto) 1.3 0.4-5.4 10 ^3/uL Monocytes # (Auto) 0.9 0-1.3 10 ^3/uL Eosinophils # (Auto) 0.1 0-0.8 10 ^3/uL Basophils # (Auto) 0 0-0.2 10 ^3/uL Nucleated Red Blood Cells 0.4 % Activated Partial Thromboplast Time > 139.0 *H 24.5-34.5 SEC Sodium Level 141 136-145 mmol/L Potassium Level 5.1 3.5-5.1 mmol/L Chloride Level 109 H 98-107 mmol/L Carbon Dioxide Level 22 20-31 mmol/L Anion Gap 10 5-15 Blood Urea Nitrogen 31 #H 9-23 mg/dL Creatinine 1.79 H 0.550-1.02 mg/dL Glomerular Filtration Rate Calc 27 >90 mL/min BUN/Creatinine Ratio 17.3 10.0-20.0 Serum Glucose 131 H 74-106 mg/dL Calcium Level 9.2 8.7-10.4 mg/dL Total Bilirubin 0.6 0.2-1.0 mg/dL Aspartate Amino Transferase (AST) 20 13-40 U/L Alanine Aminotransferase (ALT) 14 7-40 U/L Alkaline Phosphatase 93 46-116 U/L Total Protein 6.8 5.7-8.2 g/dL Albumin 3.6 3.2-4.8 g/dL Prothrombin Time 13.5 H 9.3-11.8 sec Prothrombin Time INR 1.31 H 0.9-1.15 Troponin I High Sensitivity 61 *H </=34 ng/L Test 02/28/25 16:39 02/28/25 16:06 Range/Units Urine Color Yellow Yellow Urine Clarity Clear Clear Urine pH 5.5 5.0-9.0 Urine Specific [place] 1.024 1.001-1.035 Urine Protein Trace H Negative Urine Ketones Negative Negative Urine Blood 2+ H Negative /uL Urine Nitrite Negative Negative Urine Bilirubin Negative Negative Urine Urobilinogen 2 H Negative mg/dL Urine Leukocyte Esterase Negative Negative /uL Urine RBC 8 0 - 4 /hpf Urine Microscopic WBC 1 0-5 /HPF Urine Squamous Epithelial Cells Few <5 /hpf Urine Bacteria None seen None Seen /hpf Urine Hyaline Casts Few 0 - 2 /lpf Urine Mucus Few None Seen Urine Glucose Normal Normal mg/dL Urine Opiates Screen Neg NEGATIVE Urine Fentanyl Screen Neg NEGATIVE Urine Barbiturates Screen Neg NEGATIVE Urine Phencyclidine Screen Neg NEGATIVE Urine Amphetamines Screen Neg NEGATIVE Urine Benzodiazepines Screen Neg NEGATIVE Urine Cocaine Screen Neg NEGATIVE Urine Cannabinoids Screen Neg NEGATIVE B-Type Natriuretic Peptide 941.94 0-100 pg/mL Assessment Assessment and plan: # TERRI likely hemodynamically mediated superimposed on CKD # Acute hypoxic respiratory failure # Acute DVT of lower extremity # Acute exacerbation on chronic systolic heart failure with reduced ejection fraction # NSTEMI type 2 due to above # Cellulitis of the lower extremity Plan: - Worsening kidney function with good urine output - IV Lasix 80 mg b.i.d. - FENa is 4.4% - U/S of the kidney on 12/17 demonstrated bilateral medical renal disease. - Continue IV heparin for DVT - Other management as per primary - Wound care - Physical therapy - Strict I&O - Monitor BMP Patient seen and examined by myself today on rounds with the medicine resident. I agree with her assessment and plan Total care time 35 minutes Thank you so much for the opportunity to consult on your patient. team will follow the patient. In case of any questions or concerns please feel free to reach out. Plan discussed with Dr. Fox . The patient and caregiver team agreed to the plan. Plan discussed with: Patient, Other (RN) RAYRAY ASHTON Mar 01, 2025 13:50 SHAYE FOX MD Mar 02, 2025 13:52
[2025-03-01] MEDS: FUROSEMIDE 100 MG/10ML VIAL IV SCH (16:28)
[2025-03-01 19:11] LABS: INR 1.34 (0.9-1.15); Prothrombin Time 13.8 sec (9.3-11.8)
[2025-03-01 19:32] LABS: Partial Thromboplastin Time > 139.0 SEC (24.5-34.5)
--- NOTE | 2025-03-01 19:48 | CONS ---
Pharmacy Clinical Information: HOLD HEPARIN DRIP FOR 1HR. THEN DECREASE HEPARIN DRIP RATE TO 1400 UNITS/HR PER APTT >139 NEXT APTT DRAW SCHEDULED FOR 03/02 @ 0200 PER RX PROTOCOL RENAN HOLLINS CONFIRMED AND READ BACK Paradise Millard PHARMACIST Mar 01, 2025 19:48
[2025-03-02] VITALS (8 sets, daily range): BP systolic 113–127; BP diastolic 52–83; PULSE 87–139; RESP 18–21; TEMP 97.2–98.3; O2SAT 95–100
[2025-03-02 02:28] LABS: Sodium 142 mmol/L (136-145)
[2025-03-02 02:29] LABS: Anion Gap 12 (5-15); Carbon Dioxide 21 mmol/L (20-31)
[2025-03-02 02:30] LABS: Calcium 9.2 mg/dL (8.7-10.4); Chloride 109 mmol/L (98-107); Potassium 5.3 mmol/L (3.5-5.1)
[2025-03-02 02:34] LABS: BUN/Creatinine Ratio 16.4 (10.0-20.0)
[2025-03-02 02:36] LABS: Blood Urea Nitrogen 31 mg/dL (9-23); Glucose 141 mg/dL (74-106)
[2025-03-02 02:46] LABS: INR 1.28 (0.9-1.15); Prothrombin Time 13.2 sec (9.3-11.8)
[2025-03-02 02:47] LABS: Partial Thromboplastin Time 110.8 SEC (24.5-34.5)
[2025-03-02] MEDS: HEPARIN DRIP/D5W 100UNITS/ML 250 ML IV SCH (04:27)
[2025-03-02] MEDS: InsuLIN REG 1unit/0.01ml Soln (100units/ml) IV ONE (08:15)
[2025-03-02] MEDS ORDERED: SODIUM BICARB 8.4% 50Meq/50ml SYR INJ IV ONE (08:15)
[2025-03-02] MEDS: ALBUTEROL SULF 2.5 MG/0.5ML(0.5%) NEB SOLN NEB ONE (09:32)
[2025-03-02] MEDS: SODIUM BICARB 8.4% 50Meq/50ml SYR Vial IV ONE (10:29)
[2025-03-02] MEDS: DEXTROSE (50%) 50ML SYRG IV ONE (10:29)
[2025-03-02] MEDS: SODIUM ZIRCONIUM CYCL 10 GM PAK PO SCH (10:29)
--- NOTE | 2025-03-02 11:38 | DVHPN2 ---
Progress Note Date Seen: Mar 02, 2025 Resident Creating Document: RAYRAY ASHTON RESIDENT Medical Necessity Reason Pt with a Central, PICC or Fol: Yes Subjective Review of Systems Patient was seen and examined on the bedside. She is alert oriented x3. Mentioned improvement of shortness of breath and decreased bilateral leg swelling. Other Systems: Patient seen and examined by myself today in in rounds with the medicine resident, I agree with her assessment and plan Objective vital signs Vital Sign Date Time Temp Pulse Resp B/P (MAP) Pulse Ox O2 Delivery O2 Flow Rate FiO2 03/02/25 09:32 99 Nasal Cannula* 2 28 03/02/25 09:32 89 18 03/02/25 09:00 97.2 113/83 (93) 97.2 Total Intake and Output 03/01/25 03/01/25 03/02/25 15:00 23:00 07:00 Intake Total 737 ml Output Total 750 ml 2000 ml Balance -13 ml -2000 ml medications Current Medications Medications Dose Ordered Sig/Betty Route Start Time Stop Time Status Last Admin Dose Admin Acetaminophen 325 mg Q4HP PRN PO 02/28/25 18:15 Acetaminophen/ Hydrocodone Bitart 1 tab Q4HP PRN PO 02/28/25 18:15 03/01/25 02:27 1 TAB Ondansetron HCl 4 mg Q4HP PRN IV 02/28/25 18:15 02/28/25 19:04 4 MG Morphine Sulfate 2 mg Q4HPRN PRN IV 02/28/25 18:30 03/01/25 19:49 2 MG Nitroglycerin 0.4 mg Q5MINP PRN SL 02/28/25 18:15 Morphine Sulfate 2 mg Q30M PRN IV 02/28/25 18:15 Furosemide 80 mg BIDD IV 03/01/25 18:00 03/02/25 06:22 80 MG Heparin Sodium/ Dextrose 250 ml @ 11 mls/hr [id number] IV 03/02/25 04:30 03/02/25 04:27 11 MLS/HR Zirconium Oxide 10 gm TID PO 03/02/25 08:25 03/03/25 22:01 03/02/25 10:29 10 GM Examination Physical examination: General Appearance: Alert, Oriented X3, Cooperative and on nasal cannula 2 L HEENT: Atraumatic, PERRLA, EOMI, Mucous membrane moist/pink Respiratory: bilateral crackles Cardiovascular: Regular rate, Normal S1, Normal S2, No murmurs, no chest wall tenderness Abdominal: Normal bowel sounds, Soft, No tenderness, No hepatospenomegaly, No masses Extremities: bilateral pedal edema 1+, lower extremities covered with dressing and oozing from the dressing, No clubbing, No cyanosis, Normal pulses. Skin: No rashes, No breakdown, No significant lesion Neuro: Normal speech, Strength at 5/5 X4 ext, Normal tone, Sensation intact, Cranial nerves 3-12 NL, Reflexes 2+ Psych/Mental Status: Mental status NL, Mood NL laboratory and microbiology Laboratory Tests 03/02/25 02:04 03/01/25 08:05 Test 03/02/25 02:04 Range/Units Serum Glucose 141 H 74-106 mg/dL Labs and/or images reviewed: Labs reviewed by me, Image(s) reviewed by me Problem List/Assessment/Plan Problem List/Assessment/Plan Assessment and plan: # TERRI likely hemodynamically mediated superimposed on CKD # Acute hypoxic respiratory failure # Acute DVT of lower extremity # Acute exacerbation on chronic systolic heart failure with reduced ejection fraction # NSTEMI type 2 due to above # Cellulitis of the lower extremity Plan: - Slightly worsened kidney function - Good urine output with negative balance more than 2 L - IV Lasix 80 mg b.i.d. - FENa is 4.4% - U/S of the kidney on 12/17 demonstrated bilateral medical renal disease. - Continue IV heparin for DVT - Other management as per primary - Wound care - Physical therapy - Strict I&O - Monitor BMP Thank you so much for the opportunity to consult on your patient. team will follow the patient. In case of any questions or concerns please feel free to reach out. Plan discussed with Dr. Fox . The patient and caregiver team agreed to the plan. Plan discussed with: Patient, Other (RN) My Orders My Orders Orders - RAYRAY ASHTON RESIDENT Procedure Category Date Status Time Sodium Zirconium PHA 03/02/25 In Process Cyclosilicate 08:25 Phosphorus LAB 03/02/25 Logged 11:06 Vitamin D, 25-Hydroxy LAB 03/02/25 Logged 11:06 Parathyroid Hormone LAB 03/02/25 Logged Intact 11:06 Hemoglobin A1c LAB 03/02/25 Logged 11:06 RAYRAY ASHTON Mar 02, 2025 11:38 SHAYE FOX MD Mar 02, 2025 13:53
[2025-03-02] MEDS ORDERED: FURO1TAB31 PO (12:03)
[2025-03-02] MEDS ORDERED: APIX5TAB PO (12:04)
[2025-03-02] MEDS: SODIUM ZIRCONIUM CYCL 10 GM PAK PO ONE (12:15)
--- NOTE | 2025-03-02 15:42 | DVHDS2 ---
Discharge Summary Date of Admission Feb 28, 2025 at 18:09 Date of Discharge: Mar 02, 2025 Labs/Diagnostic Data: Laboratory Results Test 03/02/25 14:25 03/02/25 02:04 03/01/25 12:24 03/01/25 08:05 Hemoglobin A1c 5.7 % A1C (<5.7) Phosphorus Level 4.0 mg/dL (2.4-5.1) Parathyroid Hormone (Intact) 80.4 pg/mL (18.4-80.1) Prothrombin Time 13.2 sec (9.3-11.8) Prothrombin Time INR 1.28 (0.9-1.15) Activated Partial Thromboplast Time 110.8 SEC (24.5-34.5) Sodium Level 142 mmol/L (136-145) Potassium Level 5.3 mmol/L (3.5-5.1) Chloride Level 109 mmol/L (98-107) Carbon Dioxide Level 21 mmol/L (20-31) Anion Gap 12 (5-15) Blood Urea Nitrogen 31 mg/dL (9-23) Creatinine 1.89 mg/dL (0.550-1.02) Glomerular Filtration Rate Calc 25 mL/min (>90) BUN/Creatinine Ratio 16.4 (10.0-20.0) Serum Glucose 141 mg/dL (74-106) Calcium Level 9.2 mg/dL (8.7-10.4) Urine Creatinine 29.02 mg/dL (30.0-125.0) Urine Protein/Creatinine Ratio 0.28 Urine Sodium 100 mmol/L (40-220) Urine Total Protein 8.2 mg/dL (1-14) White Blood Count 7.0 10^3/uL (4.4-10.8) Red Blood Count 4.34 10^6/uL (4.0-5.20) Hemoglobin 14.8 g/dL (12.2-16.2) Hematocrit 45.1 % (36.0-46.0) Mean Corpuscular Volume 103.9 fL (80.0-100.0) Mean Corpuscular Hemoglobin 34.1 pg (28.0-32.0) Mean Corpuscular Hemoglobin Concent 32.8 g/dL (32.0-36.0) Red Cell Distribution Width 15.2 % (11.8-14.3) Platelet Count 160 10^3/uL (140-450) Mean Platelet Volume 8.1 fL (6.9-10.8) Neutrophils (%) (Auto) 66.9 % (37.0-80.0) Lymphocytes (%) (Auto) 18.9 % (10.0-50.0) Monocytes (%) (Auto) 12.4 % (0.0-12.0) Eosinophils (%) (Auto) 1.3 % (0.0-7.0) Basophils (%) (Auto) 0.5 % (0.0-2.0) Neutrophils # (Auto) 4.7 10 ^3/uL (1.6-8.6) Lymphocytes # (Auto) 1.3 10 ^3/uL (0.4-5.4) Monocytes # (Auto) 0.9 10 ^3/uL (0-1.3) Eosinophils # (Auto) 0.1 10 ^3/uL (0-0.8) Basophils # (Auto) 0 10 ^3/uL (0-0.2) Nucleated Red Blood Cells 0.4 % Total Bilirubin 0.6 mg/dL (0.2-1.0) Aspartate Amino Transferase (AST) 20 U/L (13-40) Alanine Aminotransferase (ALT) 14 U/L (7-40) Alkaline Phosphatase 93 U/L (46-116) Total Protein 6.8 g/dL (5.7-8.2) Albumin 3.6 g/dL (3.2-4.8) Test 02/28/25 19:42 02/28/25 16:39 02/28/25 16:06 Troponin I High Sensitivity 61 ng/L (</=34) Urine Color Yellow (Yellow) Urine Clarity Clear (Clear) Urine pH 5.5 (5.0-9.0) Urine Specific [place] 1.024 (1.001-1.035) Urine Protein Trace (Negative) Urine Ketones Negative (Negative) Urine Blood 2+ /uL (Negative) Urine Nitrite Negative (Negative) Urine Bilirubin Negative (Negative) Urine Urobilinogen 2 mg/dL (Negative) Urine Leukocyte Esterase Negative /uL (Negative) Urine RBC 8 /hpf (0 - 4) Urine Microscopic WBC 1 /HPF (0-5) Urine Squamous Epithelial Cells Few /hpf (<5) Urine Bacteria None seen /hpf (None Seen) Urine Hyaline Casts Few /lpf (0 - 2) Urine Mucus Few (None Seen) Urine Glucose Normal mg/dL (Normal) Urine Opiates Screen Neg (NEGATIVE) Urine Fentanyl Screen Neg (NEGATIVE) Urine Barbiturates Screen Neg (NEGATIVE) Urine Phencyclidine Screen Neg (NEGATIVE) Urine Amphetamines Screen Neg (NEGATIVE) Urine Benzodiazepines Screen Neg (NEGATIVE) Urine Cocaine Screen Neg (NEGATIVE) Urine Cannabinoids Screen Neg (NEGATIVE) B-Type Natriuretic Peptide 941.94 pg/mL (0-100) Other Laboratory Tests 03/02/25 02:04 03/01/25 08:05 Brief Hx & Hospital Course: Patient is an 89-year-old female with past medical history of HFrEF, LVEF of 40% with moderate mitral regurgitation and tricuspid regurgitation, history of lower extremity DVTs, CKD, type 2 diabetes, atrial fibrillation who presented with complaints of worsening lower extremity edema. Patient appears to be living at home with family member who provides her care but it has been increasingly difficult to provide wound care for her lower extremities. Patient is noted to have bandaged lower extremities. Imaging was notable for bilateral lower extremity DVTs. Patient was also noted to have significant lower extremity edema up to her thighs. Patient was admitted for further medical management of her CHF and lower extremities. Ultrasound of the lower extremities was done which showed nonobstructing bilateral DVTs in the lower extremities. Patient was started on heparin drip. Of note, patient had significant lower extremity edema secondary to her CHF complicated by her renal failure. Patient has CKD at baseline and presented with BUN/creatinine of 45/1.68. Her BUN/creatinine was up be 31/1.89 with potassium elevation of 5.3. Nephrology evaluated the patient. They noted that the elevated potassium level secondary to her diet. Patient was diuresed with Lasix during her hospitalization. She was transition to 40 mg p.o. twice daily on discharge. No potassium supplementation was given due to elevated potassium as noted. Patient was also discharged on Eliquis 5 mg p.o. twice daily for her DVTs. Her daughter, Alejandrina and son at bedside were counseled on bleeding risks and the need to return to the ER immediately if any head trauma, fall or bleeding is noted. Patient did have some elevated troponins noted to be in the 60s without chest pain. These were noted to be chronically elevated and similar to prior admission 2 months prior. Patient was offered to be discharged to SNF for further physical therapy. She did have extensive lower extremity wounds noted to be skin sloughing. No signs of sepsis or acute infection were noted as she will have any fever, leukocytosis. Therefore patient was not treated with any antibiotics and not prescribed on discharge. Patient was offered to go to SNF but refused this option. She requested to return home with home health. A hospital bed was ordered for the patient. Physical therapy and nurse for home health with wound care was ordered as well. Follow-up to be done with nephrology in 2 weeks. [facility] case management to arrange follow-up appointments. Condition at Discharge: Good Final Diagnosis/Problems List Lower Extremity DVT Secondary Diagnosis: Acute Hypoxic Respiratory Failure CHF Exacerbation -Reduced Systolic Ejection Fraction 40% Bilateral DVT of LE, present on admission Atrial Fibrillation TERRI on CKD Discharge Disposition: Home with Health Services Discharge Instruct/Medications Diet: Cardiac 2g Na,low cholest Activity: No Restrictions, As Tolerated Follow Up/Referral: Follow up with nephrology in 2 weeks. Medications: Eliquis 5mg twice a day for lower extremity DVT Lasix 40mg twice a day for lower extremity swelling. Maintain low potassium diet. Scheduled Apixaban Base (Eliquis), 5 MG PO BID Carvedilol (Carvedilol), 1 TAB PO BID, (Reported) Cetirizine HCl (Cetirizine Hydrochloride), 1 TAB PO DAILY, (Reported) Cholecalciferol (Gnp Vitamin D Maximum Str), 1 TAB PO DAILY, (Reported) Cinacalcet Hydrochloride (Sensipar), 1 TAB PO DAILY, (Reported) Diltiazem Hcl (Diltiazem Hcl Er), 1 CAP PO DAILY, (Reported) Ferrous Sulfate (Ferosul), 1 TAB PO BID, (Reported) Furosemide (Lasix), 40 MG PO BID Gabapentin (Gabapentin), 100 CAP PO TID, (Reported) Simvastatin (Simvastatin), 1 TAB PO QPM, (Reported) Sitagliptin Phosphate (Januvia), 1 TAB PO DAILY, (Reported) Trazodone Hcl (Trazodone Hcl), 1 TAB PO DAILY, (Reported) Discontinued Medications Apixaban Base (Eliquis), 1 TAB PO BID, (Reported) Furosemide (Furosemide), 1 TAB PO DAILY, (Reported) Spironolactone (Spironolactone), 1 TAB PO DAILY, (Reported) Discharge Statement: "Patient was advised to return to the ER or call 911 if any headaches, dizziness, shortness of breath, chest pain, abdominal pain, bleeding, fevers, or worsening of medical condition. Patient was counseled about treatment plan, medications, possible side effects, patientverbalized understanding. All questions were answered to the best of my ability. This discharge took greater then 30 minutes in planning, reviewing documentation, counseling the patient, and discussing with other team members." ASSESSMENT ASSESSMENT Assessment Lower Extremity DVT GARERTT ARANDA DO Mar 02, 2025 15:42
[2025-03-02] MEDS: CARVEDILOL 3.125 MG TAB PO SCH (16:39)
[2025-03-03] MEDS ORDERED: dilTIAZem 120MG ER CAP PO SCH (10:00)
--- NOTE | 2025-03-10 07:48 | ECG ---
[facility] Test Date: 2025-02-28 Test Time: 15:38:32 Pat Name: CHIVO ESPINOSA Department: Room: 0231T A Gender: F Document Coordinator: VLAD : [id number] Requested By: CAMILA VALDES Order Number: [id number] Reading MD: Gibson Lucas Measurements Intervals [place] Rate: 104 P: 0 MO: 0 QRS: 171 QRSD: 96 T: 55 QT: 374 QTc: 492 Interpretive Statements Atrial fibrillation Right axis deviation Borderline low voltage, extremity leads Abnormal lateral Q waves Electronically Signed On 03-12-2025 17:51:34 PDT by Gibson Lucas Please click the below link to view image of tracing.
== END 2025-03-02 17:35 | disposition home health service (06) | DRG 280 ==
LOC: EDBD 15:13 → ER 15:13 → OVERFLOW 18:09 → TELE-EAST 22:09
PROVIDERS: ADMIT Student in an Organized Health Care Education/Training Program; ATTEND Student in an Organized Health Care Education/Training Program
DX: I82.403 Acute embolism and thrombosis of unspecified deep veins of lower extremity, bilateral (principal); I50.23 Acute on chronic systolic (congestive) heart failure; I21.A1 Myocardial infarction type 2; J96.01 Acute respiratory failure with hypoxia; N17.9 Acute kidney failure, unspecified; I13.0 Hypertensive heart and chronic kidney disease with heart failure and stage 1 through stage 4 chronic kidney disease, or unspecified chronic kidney disease; L03.115 Cellulitis of right lower limb; E87.5 Hyperkalemia; N18.9 Chronic kidney disease, unspecified; E11.22 Type 2 diabetes mellitus with diabetic chronic kidney disease; I48.91 Unspecified atrial fibrillation; E78.5 Hyperlipidemia, unspecified; G90.89 Other disorders of autonomic nervous system; Z79.01 Long term (current) use of anticoagulants; Z90.710 Acquired absence of both cervix and uterus; Z79.899 Other long term (current) drug therapy
CPT/HCPCS: 36415; 71045; 80048; 80053; 80307; 81001; 82306; 82570; 83036; 83880; 83970; 84100; 84156; 84300; 84484; 85025; 85610; 85730; 93005; 93970; 94640; 96374; 96375; 97163; G0378; J1815; J2405

== ENCOUNTER 2025-03-04 20:45 | Emergency (ER) | payer OTHER, MEDICAID ==
[~2025-03-04] VITALS: Ht 167.6 cm; Wt 90.9 kg
[~2025-03-04 20:45] MED LIST changes: -APIX2.5T PO; +APIX5TAB PO; +DILT-29 PO; -DOXY-346 PO; +FURO1TAB31 PO; -FURO40TA4 PO; -METO-6 PO; +SIMV10TA20 PO; -SITA50TA PO; -SPIR50TA5 PO; -TRIA0.1P2 TOP
--- NOTE | 2025-03-04 21:41 | ED.PDOC ---
Musculoskeletal HPI Comments [age] year old female who came to ER via EMS for leg pains. Patient was just discharged here 2 days ago and was diagnosed with 1. Lower Extremity DVT, 2. Acute Hypoxic Respiratory Failure, 3. CHF Exacerbation -Reduced Systolic Ejection Fraction 40%, 4. Bilateral DVT of LE, 5. Atrial Fibrillation, 6. TERRI on CKD. Patient sent home on Eliquis. Patient coming in again still complaining of bilateral lower extremity pain Chief Complaint: Lower Extremity Time Seen by MD: 21:41 Reviewed Notes: Nurses Notes Allergies: Coded Allergies: NO KNOWN ALLERGIES (Unverified , 12/24/21) Home Meds Active Scripts Apixaban Base (ELIQUIS) 5 Mg Tab, 5 MG PO BID for 30 Days, #60 TAB 1 Refill Prov:GARRETT ARANDA DO 03/02/25 Furosemide (Lasix) 40 Mg Tab, 40 MG PO BID for 60 Days, #120 TAB 2 Refills Prov:GARRETT ARANDA DO 03/02/25 Reported Medications Ferrous Sulfate (Ferosul) 325 Mg Tab, 1 TAB PO BID for 30 Days, #60 03/02/25 Cholecalciferol (Gnp Vitamin D Maximum Str) 2,000 Unit Tab, 1 TAB PO DAILY for 90 Days, #90 03/02/25 Cetirizine HCl (Cetirizine Hydrochloride) 10 Mg Tab, 1 TAB PO DAILY for 90 Days, #90 03/02/25 Gabapentin (Gabapentin) 100 Mg Cap, 100 CAP PO TID, #90 CAP 2 Refills 03/01/25 Simvastatin (Simvastatin) 10 Mg Tab, 1 TAB PO QPM, #30 TAB 5 Refills pt states she takes 5mg daily 03/01/25 Sitagliptin Phosphate (Januvia) 100 Mg Tab, 1 TAB PO DAILY for 90 Days, #90 03/01/25 Diltiazem Hcl (DILTIAZEM HCL ER) 240 Mg Cap, 1 CAP PO DAILY, #30 CAP 5 Refills 03/01/25 Cinacalcet Hydrochloride (Sensipar) 30 Mg Tab, 1 TAB PO DAILY for 30 Days, #30 03/01/25 Trazodone Hcl (Trazodone Hcl) 100 Mg Tab, 1 TAB PO DAILY for 90 Days, #90 12/06/24 Carvedilol (Carvedilol) 3.125 Mg Tab, 1 TAB PO BID for 90 Days, #180 12/06/24 Discontinued Reported Medications Furosemide (Furosemide) 40 Mg Tab, 1 TAB PO DAILY for 30 Days, #30 03/02/25 Spironolactone (Spironolactone) 50 Mg Tab, 1 TAB PO DAILY, #30 TAB 5 Refills 12/06/24 Apixaban Base (ELIQUIS) 2.5 Mg Tab, 1 TAB PO BID for 90 Days, #180 12/06/24 Information Source: Patient Mode of Arrival: EMS Location: Bilateral Extremity Location: Leg Timing: Days Severity: Moderate DVT Risk Factors: CHF, DVT Associated signs and symptoms: Leg pain Past Medical History PAST MEDICAL HISTORY: AFIB, CHF, CKF, DM, High Lipids, HTN Past Medical History (Other): Bilateral DVTs Surgical History: Hysterectomy, Tonsillectomy TURBOGENERATOR OPERATOR History: No Pertinent TURBOGENERATOR OPERATOR History Family History Family History: Reviewed,noncontributory to illness Social History Smoker: Non-Smoker, Quit Greater Than 1 Year Alcohol: Denies ETOH Use Drugs: Denies Drug Use Lives In: Home Constitutional: denies: chills, diaphoresis, fatigue, fever, malaise, sweats, weakness, others EENTM: denies: blurred vision, double vision, ear bleeding, ear discharge, ear drainage, ear pain, ear ringing, eye pain, eye redness, hearing loss, mouth pain, mouth swelling, nasal discharge, nose bleeding, nose congestion, nose p ain, photophobia, tearing, throat pain, throat swelling, voice changes, others Respiratory: denies: cough, hemoptysis, orthopnea, SOB at rest, shortness of breath, SOB with excertion, stridor, wheezing, others Cardiovascular: denies: chest pain, dizzy spells, diaphoresis, Dyspnea on exertion, edema, irregular heart beat, left arm pain, lightheadedness, palpitations, PND, syncope, others Gastrointestinal: denies: abdomen distended, abdominal pain, blood streaked bowels, constipated, diarrhea, dysphagia, difficulty swallowing, hematemesis, melena, nausea, poor appetite, poor fluid intake, rectal bleeding, rectal pain, vomiting, others Genitourinary: denies: abnormal vagina bleeding, burning, dyspareunia, dysuria, flank pain, frequency, hematuria, incontinence, pain, , vagina discharge, urgency, others Neurological: denies: dizziness, fainting, headache, left sided numbness, left sided weakness, numbness, paresthesia, pre-existing deficit, right sided numbness, right sided weakness, seizure, speech problems, tingling, tremors, weakness, others Musculoskeletal: reports: others (Lower extremity pain); denies: back pain, gout, joint pain, joint swelling, muscle pain, muscle stiffness, neck pain Integumetry: reports: wounds; denies: bruises, change in color, change in hair/nails, dryness, laceration, lesions, lumps, rash, others Allergic/Immunocompromised: denies: Difficulty Healing, Frequent Infections, Hives, Itching, others Hematologic/Lymphatic: denies: anemia, blood clots, easy bleeding, easy bruising, swollen glands, others Endocrine: denies: excessive hunger, excessive sweating, excessive thirst, excessive urination, flushing, intolerance to cold, intolerance to heat, unexplained weight gain, unexplained weight loss, others Psychiatric: denies: anxiety, bipolar disorder, depression, hopeless, panic disorder, schizophrenia, sleepless, suicidal, others Physical Exam General Appearance: No Apparent Distress, Normal HEENT: Normal ENT Inspection, Pharynx Normal, TMs Normal Neck: Full Range of Motion, Non-Tender, Normal, Normal Inspection Respiratory: Chest Non-Tender, Lungs Clear, No Accessory Muscle Use, No Respiratory Distress, Normal Breath Sounds Cardiovascular: No Edema, No JVD, No Murmur, No Gallop, Normal Peripheral Pulses, Regular Rate/Rhythm Breast Exam: Deferred Gastrointestinal: No Organomegaly, Non Tender, No Pulsatile Mass, Normal Bowel Sounds, Soft Genitalia: Deferred Pelvic: Deferred Rectal: Deferred Extremities: No calf tenderness, Normal capillary refill, Normal range of motion, Non-tender, No pedal edema, Other (Chronic Wounds lower extremity) Musculoskeletal : Apperance: Normal Neurologic: Alert, radio reporter II-XII nml as Tested, No Motor Deficits, Normal Affect, Normal Mood, No Sensory Deficits Cerebellar Function: Normal Reflexes: Normal Skin: Dry, Normal Color, Warm, Wounds (Chronic sloughing wounds lower extremity) Lymphatic: No Adenopathy Was a procedure done? Was a procedure done?: No Differential Diagnosis EXT Differential Diagnosis: Cellulitis, CHF, Deep Vein Thrombosis X-Ray, Labs, Meds, VS Vital Signs Date Time Temp Pulse Resp B/P (MAP) Pulse Ox O2 Delivery O2 Flow Rate FiO2 03/04/25 23:00 98.4 113 23 133/76 (95) 97 98.4 03/04/25 23:00 Room Air* 0 21 03/04/25 20:55 98.2 95 20 113/72 99 98.2 Lab Test 03/04/25 21:41 Range/Units White Blood Count 7.7 4.4-10.8 10^3/uL Red Blood Count 3.97 L 4.0-5.20 10^6/uL Hemoglobin 13.2 12.2-16.2 g/dL Hematocrit 40.5 # 36.0-46.0 % Mean Corpuscular Volume 102.0 H 80.0-100.0 fL Mean Corpuscular Hemoglobin 33.3 H 28.0-32.0 pg Mean Corpuscular Hemoglobin Concent 32.6 32.0-36.0 g/dL Red Cell Distribution Width 14.7 H 11.8-14.3 % Platelet Count 140 140-450 10^3/uL Mean Platelet Volume 7.8 6.9-10.8 fL Neutrophils (%) (Auto) 65.9 37.0-80.0 % Lymphocytes (%) (Auto) 16.3 10.0-50.0 % Monocytes (%) (Auto) 15.8 H 0.0-12.0 % Eosinophils (%) (Auto) 1.3 0.0-7.0 % Basophils (%) (Auto) 0.7 0.0-2.0 % Neutrophils # (Auto) 5.1 1.6-8.6 10 ^3/uL Lymphocytes # (Auto) 1.3 0.4-5.4 10 ^3/uL Monocytes # (Auto) 1.2 0-1.3 10 ^3/uL Eosinophils # (Auto) 0.1 0-0.8 10 ^3/uL Basophils # (Auto) 0.1 0-0.2 10 ^3/uL Nucleated Red Blood Cells 0.8 % Prothrombin Time 13.8 H 9.3-11.8 sec Prothrombin Time INR 1.34 H 0.9-1.15 Activated Partial Thromboplast Time 29.9 24.5-34.5 SEC Sodium Level 140 136-145 mmol/L Potassium Level 4.7 3.5-5.1 mmol/L Chloride Level 105 98-107 mmol/L Carbon Dioxide Level 26 20-31 mmol/L Anion Gap 9 5-15 Blood Urea Nitrogen 38 H 9-23 mg/dL Creatinine 2.05 H 0.550-1.02 mg/dL Glomerular Filtration Rate Calc 23 >90 mL/min BUN/Creatinine Ratio 18.5 10.0-20.0 Serum Glucose 134 H 74-106 mg/dL Calcium Level 9.1 8.7-10.4 mg/dL B-Type Natriuretic Peptide 1031.72 0-100 pg/mL Current Medications Medications (Trade) Dose Ordered Sig/Betty Route Start Time Stop Time Status Last Admin Acetaminophen/ Hydrocodone Bitart ([place] 5/325MG Tab) 1 tab ONCE ONCE PO 03/04/25 21:30 03/04/25 21:31 DC 03/04/25 22:52 Time of 1ST Reevaluation: 21:33 Reevaluation 1ST: Unchanged Patient Education/Counseling: Diagnosis, Treatment Family Education/Counseling: No Family Present Departure 1 Departure Time of Disposition: 01:55 (Patient with a worsening lower extremity edema as well as AFib with RVR. We will start patient on amnio drip and admit patient for further workup) Impression: Primary Impression: Atrial fibrillation with RVR Additional Impressions: Shortness of breath Lower extremity edema Disposition: ADMITTED INPATIENT Admit to: Tele Condition: Guarded Critical Care Note Critical Care Time?: Yes Critical care comment: AFib with RVR Authorized and Performed by: Grant Gonzalez MD Total critical care time: Approximately 39 minutes Due to a high probability of clinically significant, life threatening deterioration, the patient required my highest level of preparedness to intervene emergently and I personally spent this critical care time directly and personally managing the patient. This critical care time included obtaining a history; examining the patient; pulse oximetry; ordering and review of studies; arranging urgent treatment with development of a management plan; evaluation of patient's response to treatment; frequent reassessment; and, discussions with other providers. This critical care time was performed to assess and manage the high probability of imminent, life-threatening deterioration that could result in multi-organ failure. It was exclusive of separately billable procedures and treating other patients and teaching time. Please see my other sections and the rest of the note for further information on patient assessment and treatment. Stability Stability form required: No Heart Score Heart Score: Heart Score Response (Comments) Value History N/A 0 EKG N/A 0 Age N/A 0 Risk Factors N/A 0 Troponin N/A 0 Total 0 I personally scribed for GRANT GONZALEZ MD ([email or web address]) on 03/04/25 at 21:41. Electronically submitted by Cam Edmond ([facility] GRANT GONZALEZ MD Mar 04, 2025 21:41
[2025-03-04 22:03] LABS: Hematocrit 40.5 % (36.0-46.0); Hemoglobin 13.2 g/dL (12.2-16.2); Mean Corpuscular Hemoglobin 33.3 pg (28.0-32.0); Mean Corpuscular Volume 102.0 fL (80.0-100.0); Nucleated Red Blood Cells % 0.8 %
[2025-03-04 22:20] LABS: INR 1.34 (0.9-1.15); Partial Thromboplastin Time 29.9 SEC (24.5-34.5); Prothrombin Time 13.8 sec (9.3-11.8)
[2025-03-04 22:22] LABS: Chloride 105 mmol/L (98-107); Potassium 4.7 mmol/L (3.5-5.1); Sodium 140 mmol/L (136-145)
[2025-03-04 22:23] LABS: Anion Gap 9 (5-15); Calcium 9.1 mg/dL (8.7-10.4); Carbon Dioxide 26 mmol/L (20-31)
[2025-03-04 22:28] LABS: BUN/Creatinine Ratio 18.5 (10.0-20.0)
[2025-03-04 22:32] LABS: Blood Urea Nitrogen 38 mg/dL (9-23); Glucose 134 mg/dL (74-106)
[2025-03-04] MEDS: HYDROcodone-ACET 5/325MG TAB PO ONE (22:52)
--- NOTE | 2025-03-05 01:11 | DVH ---
CHEST RADIOGRAPH Indication: sob Technique: Single frontal view of the chest was obtained COMPARISON: XY CHEST PORTABLE on DOS: 02/28/25, XY CHEST PORTABLE on DOS: 12/03/24, CHEST PORTABLE on D OS: 12/24/21, CXRP on DOS: 12/24/21 FINDINGS: Lines and Tubes: None Lungs: Diffuse increased prominence of the pulmonary vasculature. Small bilateral pleural effusions and moderate bibasilar pulmonary airspace disease. No pneumothorax. Cardiomediastinal contours: Cardiomegaly. Bones: Unremarkable IMPRESSION: 1. Cardiomegaly with pulmonary vascular congestion and bilateral pleural effusions. 2. Moderate bibasilar pulmonary airspace disease.
[2025-03-05] MEDS: CARVEDILOL 3.125 MG TAB PO ONE (02:15)
[2025-03-05] MEDS: METOPROLOL TARTRATE 1MG/1ML-5ML VIAL IV ONE (02:30)
[2025-03-05] MEDS: DIGOXIN (250MCG/ML) 2 ML AMPULE IV ONE (02:37)
[2025-03-05] MEDS: FUROSEMIDE 20 MG/2 ML VIAL IV ONE ×3 (02:40→06:45)
[2025-03-05] MEDS: AMIODARONE BOLUS KIT 100 ML IV ONE (02:49)
[2025-03-05] MEDS: AMIODARONE 360mg/200mL PREMIX 200 ML IV ONE (03:34)
--- NOTE | 2025-03-05 05:33 | ECG ---
[facility] Test Date: 2025-03-05 Test Time: 03:49:03 Pat Name: CHIVO ESPINOSA Department[facility] Patient [facility]: [id number] Room: Gender: F Business Management Associate: ADRIENNE : 1935 Requested By: GRANT THOMASON Order Number: [id number] Reading MD: Gibson Lucas Measurements Intervals [place] Rate: 118 P: 0 OR: 0 QRS: 120 QRSD: 99 T: 57 QT: 328 QTc: 460 Interpretive Statements Atrial fibrillation Multiple ventricular premature complexes Low voltage, extremity and precordial leads Probable anterolateral infarct, old Electronically Signed On 03-05-2025 20:41:00 PDT by Gibson Lucas Please click the below link to view image of tracing.
[2025-03-05] MEDS ORDERED: AMIO200T33 PO (07:11)
[2025-03-05 08:00] LABS: Chloride 104 mmol/L (98-107); Potassium 4.6 mmol/L (3.5-5.1); Sodium 139 mmol/L (136-145)
[2025-03-05 08:01] LABS: Anion Gap 12 (5-15); Carbon Dioxide 23 mmol/L (20-31)
[2025-03-05 08:02] LABS: Calcium 9.1 mg/dL (8.7-10.4)
[2025-03-05 08:06] LABS: BUN/Creatinine Ratio 29.6 (10.0-20.0)
[2025-03-05 08:08] LABS: Blood Urea Nitrogen 59 mg/dL (9-23); Glucose 180 mg/dL (74-106)
[2025-03-05] MEDS: AMIODARONE 360mg/200mL PREMIX 200 ML IV SCH (09:00)
[2025-03-05] MEDS: APIXABAN 5 MG TAB PO SCH (10:09)
[2025-03-05] MEDS: HYDROcodone-ACET 5/325MG TAB ONE (15:24)
[2025-03-05] MEDS: HYDROcodone-ACET 5/325MG TAB PO ONE (15:24)
[2025-03-05 18:03] VITALS: BP 129/77; PULSE 93; RESP 20; TEMP 97.6; O2SAT 95
--- NOTE | 2025-03-05 20:48 | DVHINCON2 ---
DATE OF CONSULTATION: 03/05/2025 CHIEF COMPLAINT: Coming in for lower extremity pain and shortness of breath. HISTORY OF PRESENT ILLNESS: This is an 89-year-old female with significant past medical history for heart failure with reduced ejection fraction with 40% with moderate mitral regurgitation, tricuspid regurgitation, history of DVTs, on Eliquis; chronic kidney disease, stage 4; atrial fibrillation, diabetes mellitus type 2 with complication, who presents to the Emergency Room due to chief complaints of lower extremity pain and edema and shortness of breath. The patient was recently seen here on 03/02/2025 and was discharged home after being admitted for lower extremity edema, had Doppler venous studies completed, which found that the patient had nonobstructive bilateral DVTs as well as chronic lower extremity wounds. The patient was diuresed and did not seem to have any underlying infection of her extremities and was recommended to be discharged to a rehab facility; however, the patient did not want and apparently went home. The patient says since her discharge, specifically this evening, she had nobody at home. Daughter, who is her pain management specialist, typically stays throughout the day with her but leaves in the evenings. She did not take any of her evening medications, felt short of breath and had some lower extremity pain and called EMS to be taken to the hospital. The patient apparently does not ambulate since her issues in the last few months with swelling of her legs and does not again have any support in the evenings to the morning. The patient denies any fevers or chills or any palpitations or chest pain. She does have a little bit of shortness of breath and chronic cough with clear phlegm, which is also intermittent. PAST MEDICAL HISTORY: DVTs, CKD, type 2 diabetes mellitus, atrial fibrillation, congestive heart failure with reduced ejection fraction. PAST SURGICAL HISTORY: Hysterectomy, tonsillectomy. SOCIAL HISTORY: No tobacco, no alcohol or illicit drugs. MEDICATIONS AT HOME: Per medical reconciliation. MEDICATION ALLERGIES: No known drug allergies. REVIEW OF SYSTEMS: A 10-point review of systems was covered with the patient and was negative with the exception to what was present in history of present illness. PHYSICAL EXAMINATION: VITAL SIGNS: Temperature 98.4, pulse rate of 113, respiratory rate of 23, blood pressure of 133/76, pulse ox about 97% on room air. GENERAL: Seems to be alert and oriented x4, in no acute distress female, lying in bed. HEENT: Normocephalic, atraumatic. Extraocular muscles are intact. Pupils are equally round and reactive to light and accommodation. Mucous membranes look slightly moist. CARDIOVASCULAR: S1 and S2 positive. Irregularly irregular rhythm. No rubs, gallops or murmurs. LUNGS: Seem to be clear to auscultation bilaterally. No wheezing, rhonchi, or rales. ABDOMEN: Seems to be soft, nontender, and nondistended. Positive bowel sounds. EXTREMITIES: Lower extremities does have about 2+ pitting edema extending up her shins. The patient does have a Kerlix dressing to her left lower extremity that seems to be clean, dry, and intact. NEUROLOGIC: Cranial nerves testing 2-12 overall seems to be intact. LABORATORY WORKUP: Shows white count of 7.7, H and H of 13.2 and 40.5, platelet count of 140,000. INR of 1.34, sodium of 140, potassium 4.7, chloride 105, carbon dioxide 26, anion gap of 9, BUN of 30, creatinine 2.05, glucose of 134, calcium 9.1; troponins of 110, repeat of 110, and repeat of 105. IMAGING: Chest x-ray was completed. It shows cardiomegaly with pulmonary vascular congestion and bilateral pleural effusions, moderate bibasilar pulmonary airspace disease. EKG shows atrial fibrillation with occasional premature ventricular complexes, ventricular rate of 118. DIAGNOSES: * Acute systolic congestive heart failure exacerbation. * Atrial fibrillation with rapid ventricular response. * Demand-related ischemia. SECONDARY DIAGNOSES: * Chronic venous stasis, lower extremity edema. * History of bilateral DVTs. * CKD stage 4. PLAN: The patient was seen in the Emergency Room, a full assessment was completed. The patient apparently did not take her evening medications prior to arrival. The patient was given a dose of metoprolol 5 mg IV to achieve rate control; however, it did not work. The patient also received digoxin 0.125 mcg IV without adequate control. The patient also received a total dose of 40 mg of IV Lasix at presentation to help with her congestive heart failure symptoms. The patient eventually was placed on amiodarone with bolus followed by drip. The patient's heart rate control was achieved as well as the patient was converted back into sinus rhythm. The patient did receive her nighttime dose of Eliquis 5 mg in the Emergency Room. The patient, when reviewing of all her medications, seems to be on Cardizem extended-release tablets 240 mg a day, which will be discontinued. The patient will be transitioned to amiodarone 200 mg twice a day to be taken in conjunction with her carvedilol 3.125 twice a day, furosemide 40 mg twice a day, and additionally, the patient will be continued on her Eliquis 5 mg twice a day for underlying DVTs and history of AFib for stroke prevention. The patient discussion took place and she was recommended during her last stay here a few days ago to be transitioned to a rehab facility for better treatment and physical therapy and wound care for her chronic lower extremity venous stasis ulcers. The patient agreed. The patient was discharged in stable condition to a rehab facility. The patient's medical reconciliation was completed. The patient was educated about medication adjustments. The patient, from my standpoint, is stable to be discharged again to rehab facility. We will arrange the patient to have a close PCP followup after her completion of rehab facility within 2-3 weeks. The patient is to have a Cardiology referral within the next 7-[address] Liz. The patient is to return to the Emergency Room in case of any palpitations, dyspnea, shortness of breath, chest pain, fevers, chills, nausea, vomiting, or any other concerning signs and/or symptoms. Lj Hogan MD LM/ROCHELLE TID: [id number] RECEIPT: [id number]
== END 2025-03-05 20:00 ==
LOC: ER 20:45 → EDBD 20:45 → ER 03-05 20:00
DX: I48.91 Unspecified atrial fibrillation (principal); R60.0 Localized edema; R06.02 Shortness of breath; I13.0 Hypertensive heart and chronic kidney disease with heart failure and stage 1 through stage 4 chronic kidney disease, or unspecified chronic kidney disease; E11.22 Type 2 diabetes mellitus with diabetic chronic kidney disease; N17.9 Acute kidney failure, unspecified; N18.4 Chronic kidney disease, stage 4 (severe); Z79.84 Long term (current) use of oral hypoglycemic drugs; Z79.899 Other long term (current) drug therapy; Z86.718 Personal history of other venous thrombosis and embolism; Z90.710 Acquired absence of both cervix and uterus
CPT/HCPCS: 36415; 71045; 80048; 83880; 84484; 85025; 85610; 85730; 93005; 96365; 96366; 96375; 96376; 99291; J0283; J1160; J1938